=== PATIENT | male | born 1930 | race African-American/Black ===

== ENCOUNTER 2017-02-08 15:15 | Inpatient (IN) | payer MEDICARE, BC ==
[~2017-02-08] VITALS: Ht 165.1 cm; Wt 73.1 kg
[~2017-02-08 15:15] MED LIST: AMLO5TAB4 PO; BIMA2.5D EACHEYE; CITA20TA5 PO; GABA-586 PO; LISI1TAB5 PO; OXYC-314 PO; OXYC-323 PO; PRED20TA PO; SOLI10TA2 PO; SOLI5TAB2 PO; SULF1TAB24 PO; TAMS0.4C2 PO; TERA10CA3 PO; TIMO5DRO5 EACHEYE; TIZA4TAB PO
--- NOTE | 2017-02-08 15:42 | ED.ADGEN ---
Past Medical History Past Medical History: Arthritis, Diabetes-Type II, Glaucoma, Hypertension Additional Past Medical Histor: neuropathy, blind, Rt shoulder ligament torn, PAD Past Surgical History: Other Additional Past Surgical Histo: right ext iliac stent Alcohol Use: None Drug Use: None Adult General Chief Complaint Chief Complaint: MULTIPLE COMPLAINTS HPI HPI Patient is a 86 year old man, history of hypertension, type 2 diabetes mellitus , glaucoma, PAD, who presents to the emergency department with a complaint of left back, flank, abdominal pain which has been present intermittently for the past week or so, associated with pain with urination. No chest pain or shortness of breath. Patient states that about 2 weeks ago he seen by his doctor , was having some pain with urination, that time he started on antibiotic he stated he took a week this medication as prescribed by his primary care provider , states that the symptoms initially did clear up somewhat, but have returned and have been worse and more persistent. He describes it is a squeezing pain located in his left flank and back, associated with nausea, generalized malaise and decreased appetite. He states that he has not taken any other medications aside from the antibiotics and is really scheduled medications for this discomfort. Pain he states is a 9 out of 10 currently, it is currently feeling nauseous. He denies any injuries, any fevers or chills, any focal weakness, numbness or tingling but states that he feels weak all over. Denies any sick contacts or exposures, states that he is having pain with urination that has been persistent, is a burning, but denies any contacts, exposures, discharge drainage or injuries. No swelling of the extremities, recent travel or surgery, history of DVT or PE, he does not take any blood thinning medications. His primary care provider is Dr. Flores, and he does not know the name of the antibiotic which he was prescribed. Patient states that he had similar symptoms "a long time ago", but is unclear what may have caused the symptoms at that time or how was treated. He denies any history of renal calculi or colic. No vomiting, last bowel movement was this morning and was normal per patient report. Review of Systems Review of Systems Constitutional: Denies fever or chills. [] Eyes: Denies change in visual acuity. [] HENT: Denies nasal congestion or sore throat. [] Respiratory: Denies cough or shortness of breath. [] Cardiovascular: Denies chest pain or edema. [] GI: Sided flank abdominal pain, nausea, no vomiting, bloody stools or diarrhea. : Dysuria, no hematuria, no discharge or drainage. Musculoskeletal: Denies back pain or joint pain. [] Integument: Denies rash. [] Neurologic: Denies headache, focal weakness or sensory changes. [] Endocrine: Denies polyuria or polydipsia. [] Lymphatic: Denies swollen glands. [] Psychiatric: Denies depression or anxiety. [] Current Medications Current Medications Current Medications Medications (Trade) Dose Ordered Sig/Alysia Start Time Stop Time Status Last Admin Dose Admin Fentanyl Citrate (Fentanyl 2ml Vial) 25 mcg PRN Q15MIN PRN 02/08/17 15:45 02/09/17 15:44 02/08/17 16:12 25 MCG Ondansetron HCl (Zofran) 4 mg 1X ONCE 02/08/17 15:45 02/08/17 15:46 DC 02/08/17 16:10 4 MG Sodium Chloride 1,000 ml @ 100 mls/hr 1X ONCE 02/08/17 15:45 02/09/17 01:44 02/08/17 16:09 100 MLS/HR Allergies Allergies Allergies Coded Allergies Type Severity Reaction Last Updated Verified lisinopril Allergy Intermediate 10/30/14 No Physical Exam Physical Exam Constitutional: Well developed, well nourished, no acute distress, non-toxic appearance. [] HENT: Normocephalic, atraumatic, bilateral external ears normal, oropharynx moist, no oral exudates, nose normal. [] Eyes: PERRLA, EOMI, conjunctiva normal, no discharge. [] Neck: Normal range of motion, no tenderness, supple, no stridor. [] Cardiovascular:Heart rate regular rhythm, no murmur, S1, S2, no rubs or gallops. Lungs & Thorax: Bilateral breath sounds clear to auscultation, no wheezing, no rhonchi, rales. No chest wall crepitus, patient with mild tenderness in the left lateral lower back, although he is having more pain in the left flank and left abdominal region this appears to be connected. No external signs of trauma or lesions identified. [] Abdomen: Bowel sounds normal, soft, mildly distended, tenderness to palpation in the left upper and left lower quadrant, worse in the lower quadrant on the left, no epigastric tenderness, no rebound, rigidity, no guarding, no masses, no pulsatile masses. [] Skin: Warm, dry, no erythema, no rash. [] Back: No tenderness, mild left-sided CVA tenderness. Extremities: No tenderness, no cyanosis, no clubbing, ROM intact, no edema. [ Negative Homans sign.] Neurologic: Alert and oriented X 3, normal motor function, normal sensory function, no focal deficits noted. [] Psychologic: Affect normal, judgement normal, mood normal. [] Current Patient Data Vital Signs Vital Signs Date Time Temp Pulse Resp B/P (MAP) Pulse Ox O2 Delivery O2 Flow Rate FiO2 02/08/17 16:12 17 94 Room Air 02/08/17 15:35 97.5 65 140/93 (109) 97.5 Lab Values Laboratory Tests Test 02/08/17 15:51 White Blood Count 5.1 x10^3/uL (4.0-11.0) Red Blood Count 4.11 x10^6/uL (4.30-5.70) L Hemoglobin 13.2 g/dL (13.0-17.5) Hematocrit 39.4 % (39.0-53.0) Mean Corpuscular Volume 96 fL (79-100) Mean Corpuscular Hemoglobin 32 pg (25-35) Mean Corpuscular Hemoglobin Concent 33 g/dL (31-37) Red Cell Distribution Width 13.3 % (11.5-14.5) Platelet Count 203 x10^3/uL (140-400) Neutrophils (%) (Auto) 54 % (31-73) Lymphocytes (%) (Auto) 29 % (24-48) Monocytes (%) (Auto) 12 % (0-9) H Eosinophils (%) (Auto) 4 % (0-3) H Basophils (%) (Auto) 1 % (0-3) Neutrophils # (Auto) 2.8 x10^3uL (1.8-7.7) Lymphocytes # (Auto) 1.5 x10^3/uL (1.0-4.8) Monocytes # (Auto) 0.6 x10^3/uL (0.0-1.1) Eosinophils # (Auto) 0.2 x10^3/uL (0.0-0.7) Basophils # (Auto) 0.0 x10^3/uL (0.0-0.2) Sodium Level 128 mmol/L (136-145) L Potassium Level 3.7 mmol/L (3.5-5.1) Chloride Level 91 mmol/L (98-107) L Carbon Dioxide Level 28 mmol/L (21-32) Anion Gap 9 (6-14) Blood Urea Nitrogen 21 mg/dL (8-26) Creatinine 1.6 mg/dL (0.7-1.3) H Estimated GFR (Cockcroft-Gault) 49.8 BUN/Creatinine Ratio 13 (6-20) Glucose Level 106 mg/dL (70-99) H Calcium Level 9.7 mg/dL (8.5-10.1) Total Bilirubin 0.7 mg/dL (0.2-1.0) Aspartate Amino Transferase (AST) 26 U/L (15-37) Alanine Aminotransferase (ALT) 13 U/L (16-63) L Alkaline Phosphatase 79 U/L (46-116) Troponin I Quantitative 0.089 ng/mL (0.000-0.055) Total Protein 6.6 g/dL (6.4-8.2) Albumin 3.3 g/dL (3.4-5.0) L Albumin/Globulin Ratio 1.0 (1.0-1.7) Lipase 122 U/L (73-393) Laboratory Tests 02/08/17 15:51 Laboratory Tests 02/08/17 15:51 EKG EKG EC: Sinus rhythm, heart rate 63 bpm, 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 Abnormal ECG, does not meet STEMI criteria. As interpreted by me. Radiology/Procedures Radiology/Procedures [][facility] [address] [place] [address] IMAGING REPORT Signed PATIENT: KRISTIN PAINTER ACCOUNT: [id number] : 1930 LOCATION: ER AGE: 86 SEX: M EXAM STATUS: REG ER ORD. PHYSICIAN: NANNETTE SMITH DO REASON: left sided pain PROCEDURE: CHEST PA & LATERAL EXAM: CHEST 2 VIEWS History: Left-sided chest pain, diabetes, hypertension COMPARISON: 06/22/2014 TECHNIQUE: PA and lateral chest radiographs FINDINGS: The cardiomediastinal silhouette is within normal limits. The lungs are clear bilaterally. The costophrenic sulci are clear and well demarcated bilaterally. IMPRESSION: No radiographic evidence of an acute cardiopulmonary abnormality. DICTATED and SIGNED BY: GALDINO BHAT MD DATE: 02/08/171651 CC: NANNETTE SMITH DO; SHRUTHI FLORES Jr, MD ~ Course & Med Decision Making Course & Med Decision Making Pertinent Labs and Imaging studies reviewed. (See chart for details) Complaining of generalized weakness, wheelchair used to get the patient to bed, patient with shuffling steps. He denies any focal weakness. Complains of decreased intake over the past several days due to generalized malaise. Has been taking her Biaxin as directed although he cannot recall the name of the antibiotic as stated. Patient's creatinine noted to be elevated at 1.6, review of records reveal the patient is experienced renal sufficiency previously, with creatinines from the 1.3-2.0 range, improving after hospital admission. Patient also noted to have hyponatremia with a sodium 128, which appears he has experienced previously as well, with sodiums down to 123, then improving into the mid 130s, additionally, patient with a chloride of 91, and a troponin that is mildly elevated at 0.089. I believe this may be due to patient's underlying renal insufficiency, as he is not experiencing any cardiac type symptoms, ECG abnormal, but does not reveal evidence of acute changes from prior. Patient receiving IV fluids in the emergency department, gentle hydration in 100 mL's an hour. Findings as above discussed with Dr. Marquez of internal medicine, patient accepted to his service as a full admission to the medical telemetry floor, with laboratory studies and monitoring as stated, along with hydration. Urinalysis does not reveal bacteria, however as patient is still experiencing symptoms and has been taking oral antibiotics, will continue with IV antibiotics at this time, after discussion with patient and family at bedside. Patient is agreeable for admission to the hospital for gentle hydration and repeat monitoring laboratory studies. Patient resting comfortably at this time, awaiting transport to the floor in stable condition, sinus rhythm on the monitor. Bridge orders entered per discussion. Dragon Disclaimer Dragon Disclaimer This electronic medical record was generated, in whole or in part, using a voice recognition dictation system. Departure Impression: Primary Impression: Hyponatremia Additional Impressions: Dehydration Elevated troponin Disposition: 09 ADMITTED INPATIENT Admitting Physician: Celine Marquez Condition: IMPROVED Problem Qualifiers NANNETTE SMITH DO Feb 08, 2017 15:42
[2017-02-08] MEDS ORDERED: fentaNYL PF VIAL 100 MCG/2 ML VIAL IV PRN ×2 (15:45→18:15)
[2017-02-08] MEDS ORDERED: IV NORMAL SALINE 1000ML BAG 1,000 ML IV ONE (15:45)
[2017-02-08] MEDS ORDERED: ONDANSETRON PF 4 MG/2 ML VIAL. IV ONE (15:45)
--- NOTE | 2017-02-08 15:51 | EKG ---
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: : 1930 Requested By: NANNETTE SMITH Order Number: [id number] Reading MD: Bunny Henriquez Measurements Intervals [place] Rate: 63 P: -42 RI: 196 QRS: -73 QRSD: 136 T: -52 QT: 480 QTc: 495 Interpretive Statements SINUS RHYTHM VENTRICULAR PREMATURE COMPLEX(ES) ABNORMAL LEFT AXIS DEVIATION LEFT ANTERIOR FASCICULAR BLOCK NON SPECIFIC INTRAVENTRICULAR BLOCK QRS(T) CONTOUR ABNORMALITY CANNOT RULE OUT ANTEROSEPTAL MYOCARDIAL DAMAGE CANNOT RULE OUT INFERIOR MYOCARDIAL DAMAGE RI6.01 Unconfirmed report Compared to ECG 06/21/2014 13:44:10 ST (T wave) deviation no longer present Electronically Signed On 02-10-2017 11:17:12 CDT by Bunny Henriquez
[2017-02-08 16:04] LABS: BASO % 1 % (0-3); EOS % 4 % (0-3); HEMATOCRIT 39.4 % (39.0-53.0); HEMOGLOBIN 13.2 g/dL (13.0-17.5); LYMPH # 1.5 x10^3/uL (1.0-4.8); LYMPH % 29 % (24-48); MEAN CORPUSCULAR HEMOGLOBIN 32 pg (25-35); MEAN CORPUSCULAR HGB CONC 33 g/dL (31-37); MEAN CORPUSCULAR VOLUME 96 fL (79-100); MONO % 12 % (0-9); NEUT % 54 % (31-73); PLATELET COUNT 203 x10^3/uL (140-400); RED BLOOD COUNT 4.11 x10^6/uL (4.30-5.70); RED CELL DISTRIBUTION WIDTH 13.3 % (11.5-14.5); WHITE BLOOD COUNT 5.1 x10^3/uL (4.0-11.0)
[2017-02-08 16:42] LABS: CALCIUM 9.7 mg/dL (8.5-10.1); CREATININE 1.6 mg/dL (0.7-1.3); GFR 49.8; POTASSIUM 3.7 mmol/L (3.5-5.1)
[2017-02-08 16:48] LABS: ALBUMIN 3.3 g/dL (3.4-5.0); TOTAL BILIRUBIN 0.7 mg/dL (0.2-1.0); TOTAL PROTEIN 6.6 g/dL (6.4-8.2)
--- NOTE | 2017-02-08 16:55 | RAD ---
EXAM: CHEST 2 VIEWS History: Left-sided chest pain, diabetes, hypertension COMPARISON: 06/22/2014 TECHNIQUE: PA and lateral chest radiographs FINDINGS: The cardiomediastinal silhouette is within normal limits. The lungs are clear bilaterally. The costophrenic sulci are clear and well demarcated bilaterally. IMPRESSION: No radiographic evidence of an acute cardiopulmonary abnormality.
[2017-02-08] MEDS ORDERED: CONTRAST GIVEN MC PRN (17:00)
[2017-02-08] MEDS ORDERED: IOHEXOL 300 MG/ML 75 ML VIAL IV ONE (17:00)
[2017-02-08 17:10] LABS: BILIRUBIN,URINE NEGATIVE (NEG); GLUCOSE,URINE NEGATIVE (NEG); NITRITE,URINE NEGATIVE (NEG); PH,URINE 5.5; PROTEIN,URINE 30 mg/dL (NEG-TRACE); UROBILINOGEN,URINE 0.2 mg/dL (0.2 mg/dL)
[2017-02-08 17:24] LABS: BACTERIA,URINE 0 /HPF (0-FEW); SQUAMOUS EPITHELIAL CELL,UR OCC /LPF; WBC,URINE OCC /HPF (0-4)
--- NOTE | 2017-02-08 17:39 | RAD ---
CT ABD PELV W/ IV CONTRST ONLY dated 02/08/2017 3:32 PM Indication: Left-sided abdominal pain, flank pain, pain on urination. Comparison: 06/21/2014 Technique: Contiguous axial imaging of the abdomen and pelvis performed after the administration of 75 cc Omnipaque 300. One or more of the following individualized dose reduction techniques were utilized for this examination: 1. Automated exposure control 2. Adjustment of the mA and/or kV according to patient size 3. Use of iterative reconstruction technique Findings: Limited images of lung bases show linear band of increased density in the lingula, likely scar or atelectasis. There is also minimal scarring at the right lung base. Heart size within normal limits. Coronary artery calcifications. Liver, spleen, pancreas, adrenal glands unremarkable. Calcific stones in the gallbladder lumen. Kidneys are symmetric in size and enhancement. There is mild atrophy. No hydronephrosis. Unopacified GI tract normal in caliber and contour. No focal bowel wall thickening. No inflammatory stranding in the mesentery. The appendix is normal in caliber. No ascites or lymphadenopathy. There are a few scattered diverticula. Images of the pelvis shows nondistended urinary bladder. Prostate gland upper limits of normal in size. No free fluid or pelvic lymphadenopathy. There is a stent in the right external iliac artery. Possible stent in the left common iliac artery. 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 Bone windows show no acute findings. Moderate lower lumbar spondylosis. IMPRESSION: 1. No acute amount of abdomen or pelvis. Normal appendix. 2. Diverticulosis with no evidence of acute diverticulitis. 3. 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 4. Cholelithiasis. Electronically signed by: Ashish Tavares MD (02/08/2017 5:36 PM)
[2017-02-08] MEDS: IV NORMAL SALINE 1000ML BAG 1,000 ML IV SCH (18:01)
[2017-02-08] MEDS ORDERED: DEXTROSE 50% 25 GM / 50ML DISP.SYRIN. IV PRN (18:15)
[2017-02-08] MEDS ORDERED: ONDANSETRON PF 4 MG/2 ML VIAL. IV PRN (18:15)
[2017-02-08] MEDS ORDERED: ACETAMINOPHEN 325 MG TABLET. PO PRN (18:15)
[2017-02-08 19:50] VITALS: BP 159/96
[2017-02-08 23:31] VITALS: BP 169/106
[2017-02-09] VITALS (7 sets, daily range): BP systolic 124–182; BP diastolic 72–98
--- NOTE | 2017-02-09 00:41 | HP ---
ADMIT DATE: 02/08/2017 CHIEF COMPLAINT: Abdominal pain. HISTORY OF PRESENT ILLNESS: The patient is a pleasant 86-year-old male who presents to the ER with abdominal pain. He has been recently treated as an outpatient for UTI with p.o. antibiotics. While in the ER, he was noted to be somewhat dehydrated. His creatinine is a little high at 1.6. He also has UTI. His troponin is slightly high, though we think that it is from his chronic renal insufficiency. I have discussed the case with the ER physician. We are going to admit the patient and consult Nephrology and put him on some empiric IV antibiotics and fluids. PAST MEDICAL HISTORY: Arthritis, diabetes, UTI, glaucoma, hypertension, neuropathy, right shoulder surgery, peripheral vascular disease and right external iliac stent. ALLERGIES: LISINOPRIL. FAMILY HISTORY: Diabetes. SOCIAL HISTORY: Does not drink, smoke or take drugs. MEDICATIONS: Reviewed, please refer to the MRAD. REVIEW OF SYSTEMS: GENERAL: No history of weight change, weakness or fevers. SKIN: No bruising, hair changes or rashes. EYES: No blurred, double or loss of vision. NOSE AND THROAT: No history of nosebleeds, hoarseness or sore throat. HEART: No history of palpitations, chest pain or shortness of breath on exertion. LUNGS: Denies cough, hemoptysis, wheezing or shortness of breath. GASTROINTESTINAL: He complains of mild abdominal pain. GENITOURINARY: No history of frequency, urgency, hesitancy or nocturia. NEUROLOGIC: Denies history of numbness, tingling, tremor or weakness. PSYCHIATRIC: No history of panic, anxiety or depression. ENDOCRINE: No history of heat or cold intolerance, polyuria or polydipsia. EXTREMITIES: Denies muscle weakness, joint pain, pain on walking or stiffness. PHYSICAL EXAMINATION: VITAL SIGNS: Temperature afebrile, pulse 62, respirations 18, blood pressure 148/84. GENERAL: He is alert, cooperative. HEART: Normal S1, S2. LUNGS: Clear. ABDOMEN: Soft. Decreased bowel sounds, slightly tender. EXTREMITIES: Trace edema. SKIN: No rashes. ENDOCRINE: No thyromegaly. LYMPHATICS: No cervical nodes. HEMATOPOIETIC: No bruising. LABORATORY DATA: White count 5, hemoglobin 13, platelets 203. Electrolytes: Sodium ____, potassium 3.7, chloride 91, bicarbonate ____, BUN 21, creatinine 1.6, glucose 106. Troponin 0.089. ASSESSMENT AND PLAN: Dehydration with acute on chronic urinary tract infection. The patient has been admitted. We will start IV antibiotics, IV fluids. Consult Nephrology. Continue home meds, PT, OT, alf evaluation. JOSE ANGEL SAINI DO DR: BRIGID/chung JOB#: [id number] / [id number]
[2017-02-09] MEDS: IV NORMAL SALINE 1000ML BAG 1,000 ML IV SCH ×2 (03:57→13:13)
[2017-02-09] MEDS ORDERED: amLODIPine BESYLATE 5 MG TABLET PO ONE (04:30)
[2017-02-09 06:46] LABS: BASO % 0 % (0-3); EOS % 5 % (0-3); HEMATOCRIT 35.1 % (39.0-53.0); LYMPH # 1.3 x10^3/uL (1.0-4.8); LYMPH % 30 % (24-48); MEAN CORPUSCULAR HEMOGLOBIN 32 pg (25-35); MEAN CORPUSCULAR HGB CONC 34 g/dL (31-37); MEAN CORPUSCULAR VOLUME 95 fL (79-100); MONO % 14 % (0-9); NEUT % 51 % (31-73); PLATELET COUNT 170 x10^3/uL (140-400); WHITE BLOOD COUNT 4.2 x10^3/uL (4.0-11.0)
[2017-02-09 06:54] LABS: CALCIUM 8.6 mg/dL (8.5-10.1); CREATININE 1.4 mg/dL (0.7-1.3); GFR 58.1; POTASSIUM 3.9 mmol/L (3.5-5.1)
--- NOTE | 2017-02-09 07:21 | ACF ---
Admission Forms Criteria DEHYDRATION Clinical Indications for Admission to Inpatient Care (Place 'X' for any and all applicable criteria): Admission is indicated for ANY ONE of the following (1)(2)(3)(4)(5): [X]I. Inpatient admission required rather than observation care (see Dehydration: Observation Care guideline as appropriate) because of ANY ONE of the following: [ ]a) Vomiting that is severe or persistent [X]b) Severe electrolyte abnormalities requiring inpatient care [ ]c) Hemodynamic instability [ ]d) IV fluid to replace significant ongoing losses (greater than 3 L/m2 per day (10) (11) [ ]e) Parenteral nutrition regimen that must be implemented on inpatient basis [ ]f) Other condition,treatment or monitoring requiring inpatient admission [ ]II. Serious cause for dehydration requiring acute hospitalization (eg, bowel obstruction, increased intracranial pressure, infectious cause) Extended stay beyond goal length of stay may be needed for(1)(3 )(4)(17): [ ]a) Chronic severe dehydration [ ]b) Persistent vital sign changes, severe electrolyte imbalance, or diagnosed cause of dehydration that requires continued hospitalization (eg, bowel obstruction, increased intracranial pressure) [ ]c) Older patients (65 years or older) [ ]d) Severe comorbid illness (eg, renal failure, heart failure, poorly controlled diabetes) The original [employer] content created by [employer] has been revised. The portions of the content which have been revised are identified through the use of italic text or in bold, and [email or web address] has neither reviewed nor approved the modified material. All other unmodified content is copyright [employer]. Please see references footnoted in the original [employer] edition 2016 Admission Criteria Met?: Yes GEGE CHIU Feb 09, 2017 07:21
[2017-02-09] MEDS ORDERED: INSULIN ASPART 300 UNITS/3 ML INSULN.PEN SQ SCH (08:00)
[2017-02-09] MEDS ORDERED: cloNIDine HCL 0.2 MG TABLET PO PRN (08:45)
--- NOTE | 2017-02-09 09:13 | EKG ---
[facility] [address] [place] [address] Test Date: 2017-02-09 Test Time: 07:52:08 Pat Name: KRISTIN PAINTER Department: Room: 671 1 Gender: M Record Librarian: BRYN : 1930 Requested By: NANNETTE SMITH Order Number: [id number] Reading MD: Bunny Henriquez Measurements Intervals [place] Rate: 70 P: 54 [place]: 198 QRS: -80 QRSD: 142 T: -24 QT: 458 QTc: 498 Interpretive Statements SINUS RHYTHM ABNORMAL LEFT AXIS DEVIATION S1,S2,S3 PATTERN LEFT ANTERIOR FASCICULAR BLOCK NON SPECIFIC INTRAVENTRICULAR BLOCK QRS(T) CONTOUR ABNORMALITY CONSIDER INFERIOR MYOCARDIAL DAMAGE ABNORMAL ECG RI6.01 Unconfirmed report Compared to ECG 06/21/2014 13:44:10 ST (T wave) deviation no longer present Electronically Signed On 02-10-2017 11:22:01 CDT by Bunny Henriquez
--- NOTE | 2017-02-09 09:23 | PDOC ---
PROGRESS NOTES Chief Complaint Chief Complaint Dehydration Elevated Trop UTI Abd pain Old H/O: Arthritis, diabetes, UTI, glaucoma, hypertension, neuropathy, right shoulder surgery, peripheral vascular disease and right external iliac stent. History of Present Illness History of Present Illness Pt seen and examined VSS but BP up DW RNs Ordered Clonidine and increased Norvasc Vitals Vitals Vital Signs Date Time Temp Pulse Resp B/P (MAP) Pulse Ox O2 Delivery O2 Flow Rate FiO2 02/09/17 07:00 98.0 63 18 182/98 (126) 95 Room Air 98.0 Physical Exam General: Alert, Oriented X3 Heart: Regular rate, Normal S1, Normal S2 Lungs: Clear Abdomen: Normal bowel sounds, Other (tender LUQ) Labs LABS Laboratory Tests Test 02/08/17 15:51 02/08/17 16:50 02/08/17 21:55 02/09/17 04:25 White Blood Count 5.1 x10^3/uL (4.0-11.0) 4.2 x10^3/uL (4.0-11.0) Red Blood Count 4.11 x10^6/uL (4.30-5.70) 3.70 x10^6/uL (4.30-5.70) Hemoglobin 13.2 g/dL (13.0-17.5) 12.0 g/dL (13.0-17.5) Hematocrit 39.4 % (39.0-53.0) 35.1 % (39.0-53.0) Mean Corpuscular Volume 96 fL (79-100) 95 fL (79-100) Mean Corpuscular Hemoglobin 32 pg (25-35) 32 pg (25-35) Mean Corpuscular Hemoglobin Concent 33 g/dL (31-37) 34 g/dL (31-37) Red Cell Distribution Width 13.3 % (11.5-14.5) 13.0 % (11.5-14.5) Platelet Count 203 x10^3/uL (140-400) 170 x10^3/uL (140-400) Neutrophils (%) (Auto) 54 % (31-73) 51 % (31-73) Lymphocytes (%) (Auto) 29 % (24-48) 30 % (24-48) Monocytes (%) (Auto) 12 % (0-9) 14 % (0-9) Eosinophils (%) (Auto) 4 % (0-3) 5 % (0-3) Basophils (%) (Auto) 1 % (0-3) 0 % (0-3) Neutrophils # (Auto) 2.8 x10^3uL (1.8-7.7) 2.1 x10^3uL (1.8-7.7) Lymphocytes # (Auto) 1.5 x10^3/uL (1.0-4.8) 1.3 x10^3/uL (1.0-4.8) Monocytes # (Auto) 0.6 x10^3/uL (0.0-1.1) 0.6 x10^3/uL (0.0-1.1) Eosinophils # (Auto) 0.2 x10^3/uL (0.0-0.7) 0.2 x10^3/uL (0.0-0.7) Basophils # (Auto) 0.0 x10^3/uL (0.0-0.2) 0.0 x10^3/uL (0.0-0.2) Sodium Level 128 mmol/L (136-145) 130 mmol/L (136-145) Potassium Level 3.7 mmol/L (3.5-5.1) 3.9 mmol/L (3.5-5.1) Chloride Level 91 mmol/L (98-107) 95 mmol/L (98-107) Carbon Dioxide Level 28 mmol/L (21-32) 27 mmol/L (21-32) Anion Gap 9 (6-14) 8 (6-14) Blood Urea Nitrogen 21 mg/dL (8-26) 18 mg/dL (8-26) Creatinine 1.6 mg/dL (0.7-1.3) 1.4 mg/dL (0.7-1.3) Estimated GFR (Cockcroft-Gault) 49.8 58.1 BUN/Creatinine Ratio 13 (6-20) Glucose Level 106 mg/dL (70-99) 99 mg/dL (70-99) Calcium Level 9.7 mg/dL (8.5-10.1) 8.6 mg/dL (8.5-10.1) Total Bilirubin 0.7 mg/dL (0.2-1.0) Aspartate Amino Transf (AST/SGOT) 26 U/L (15-37) Alanine Aminotransferase (ALT/SGPT) 13 U/L (16-63) Alkaline Phosphatase 79 U/L (46-116) Troponin I Quantitative 0.089 ng/mL (0.000-0.055) 0.085 ng/mL (0.000-0.055) 0.085 ng/mL (0.000-0.055) Total Protein 6.6 g/dL (6.4-8.2) Albumin 3.3 g/dL (3.4-5.0) Albumin/Globulin Ratio 1.0 (1.0-1.7) Lipase 122 U/L (73-393) Urine Collection Type U cath Urine Color Yellow Urine Clarity Clear Urine pH 5.5 Urine Specific [place] 1.015 Urine Protein 30 mg/dL (NEG-TRACE) Urine Glucose (UA) Negative mg/dL (NEG) Urine Ketones (Stick) Negative mg/dL (NEG) Urine Blood Small (NEG) Urine Nitrite Negative (NEG) Urine Bilirubin Negative (NEG) Urine Urobilinogen Dipstick 0.2 mg/dL (0.2 mg/dL) Urine Leukocyte Esterase Trace (NEG) Urine RBC 3-5 /HPF (0-2) Urine WBC Occ /HPF (0-4) Urine Squamous Epithelial Cells Occ /LPF Urine Amorphous Sediment Present /HPF Urine Bacteria 0 /HPF (0-FEW) Review of Systems Review of Systems co pain co HTN Assessment and Plan Assessmemt and Plan Problems Medical Problems: (1) Elevated troponin Status: Acute (2) Hyponatremia Status: Acute Dehydration Elevated Trop UTI Abd pain Old H/O: Arthritis, diabetes, UTI, glaucoma, hypertension, neuropathy, right shoulder surgery, peripheral vascular disease and right external iliac stent. Paln IV fluids IV antibx Added more BP meds Labs Consult GI Problems: Comment Review of Relevant I have reviewed the following items marika (where applicable) has been applied. Labs Laboratory Tests Test 02/08/17 15:51 02/08/17 16:50 02/08/17 21:55 02/09/17 04:25 White Blood Count 5.1 x10^3/uL (4.0-11.0) 4.2 x10^3/uL (4.0-11.0) Red Blood Count 4.11 x10^6/uL (4.30-5.70) 3.70 x10^6/uL (4.30-5.70) Hemoglobin 13.2 g/dL (13.0-17.5) 12.0 g/dL (13.0-17.5) Hematocrit 39.4 % (39.0-53.0) 35.1 % (39.0-53.0) Mean Corpuscular Volume 96 fL (79-100) 95 fL (79-100) Mean Corpuscular Hemoglobin 32 pg (25-35) 32 pg (25-35) Mean Corpuscular Hemoglobin Concent 33 g/dL (31-37) 34 g/dL (31-37) Red Cell Distribution Width 13.3 % (11.5-14.5) 13.0 % (11.5-14.5) Platelet Count 203 x10^3/uL (140-400) 170 x10^3/uL (140-400) Neutrophils (%) (Auto) 54 % (31-73) 51 % (31-73) Lymphocytes (%) (Auto) 29 % (24-48) 30 % (24-48) Monocytes (%) (Auto) 12 % (0-9) 14 % (0-9) Eosinophils (%) (Auto) 4 % (0-3) 5 % (0-3) Basophils (%) (Auto) 1 % (0-3) 0 % (0-3) Neutrophils # (Auto) 2.8 x10^3uL (1.8-7.7) 2.1 x10^3uL (1.8-7.7) Lymphocytes # (Auto) 1.5 x10^3/uL (1.0-4.8) 1.3 x10^3/uL (1.0-4.8) Monocytes # (Auto) 0.6 x10^3/uL (0.0-1.1) 0.6 x10^3/uL (0.0-1.1) Eosinophils # (Auto) 0.2 x10^3/uL (0.0-0.7) 0.2 x10^3/uL (0.0-0.7) Basophils # (Auto) 0.0 x10^3/uL (0.0-0.2) 0.0 x10^3/uL (0.0-0.2) Sodium Level 128 mmol/L (136-145) 130 mmol/L (136-145) Potassium Level 3.7 mmol/L (3.5-5.1) 3.9 mmol/L (3.5-5.1) Chloride Level 91 mmol/L (98-107) 95 mmol/L (98-107) Carbon Dioxide Level 28 mmol/L (21-32) 27 mmol/L (21-32) Anion Gap 9 (6-14) 8 (6-14) Blood Urea Nitrogen 21 mg/dL (8-26) 18 mg/dL (8-26) Creatinine 1.6 mg/dL (0.7-1.3) 1.4 mg/dL (0.7-1.3) Estimated GFR (Cockcroft-Gault) 49.8 58.1 BUN/Creatinine Ratio 13 (6-20) Glucose Level 106 mg/dL (70-99) 99 mg/dL (70-99) Calcium Level 9.7 mg/dL (8.5-10.1) 8.6 mg/dL (8.5-10.1) Total Bilirubin 0.7 mg/dL (0.2-1.0) Aspartate Amino Transf (AST/SGOT) 26 U/L (15-37) Alanine Aminotransferase (ALT/SGPT) 13 U/L (16-63) Alkaline Phosphatase 79 U/L (46-116) Troponin I Quantitative 0.089 ng/mL (0.000-0.055) 0.085 ng/mL (0.000-0.055) 0.085 ng/mL (0.000-0.055) Total Protein 6.6 g/dL (6.4-8.2) Albumin 3.3 g/dL (3.4-5.0) Albumin/Globulin Ratio 1.0 (1.0-1.7) Lipase 122 U/L (73-393) Urine Collection Type U cath Urine Color Yellow Urine Clarity Clear Urine pH 5.5 Urine Specific [place] 1.015 Urine Protein 30 mg/dL (NEG-TRACE) Urine Glucose (UA) Negative mg/dL (NEG) Urine Ketones (Stick) Negative mg/dL (NEG) Urine Blood Small (NEG) Urine Nitrite Negative (NEG) Urine Bilirubin Negative (NEG) Urine Urobilinogen Dipstick 0.2 mg/dL (0.2 mg/dL) Urine Leukocyte Esterase Trace (NEG) Urine RBC 3-5 /HPF (0-2) Urine WBC Occ /HPF (0-4) Urine Squamous Epithelial Cells Occ /LPF Urine Amorphous Sediment Present /HPF Urine Bacteria 0 /HPF (0-FEW) Laboratory Tests Test 02/08/17 15:51 02/08/17 16:50 02/08/17 21:55 02/09/17 04:25 White Blood Count 5.1 x10^3/uL (4.0-11.0) 4.2 x10^3/uL (4.0-11.0) Red Blood Count 4.11 x10^6/uL (4.30-5.70) 3.70 x10^6/uL (4.30-5.70) Hemoglobin 13.2 g/dL (13.0-17.5) 12.0 g/dL (13.0-17.5) Hematocrit 39.4 % (39.0-53.0) 35.1 % (39.0-53.0) Mean Corpuscular Volume 96 fL (79-100) 95 fL (79-100) Mean Corpuscular Hemoglobin 32 pg (25-35) 32 pg (25-35) Mean Corpuscular Hemoglobin Concent 33 g/dL (31-37) 34 g/dL (31-37) Red Cell Distribution Width 13.3 % (11.5-14.5) 13.0 % (11.5-14.5) Platelet Count 203 x10^3/uL (140-400) 170 x10^3/uL (140-400) Neutrophils (%) (Auto) 54 % (31-73) 51 % (31-73) Lymphocytes (%) (Auto) 29 % (24-48) 30 % (24-48) Monocytes (%) (Auto) 12 % (0-9) 14 % (0-9) Eosinophils (%) (Auto) 4 % (0-3) 5 % (0-3) Basophils (%) (Auto) 1 % (0-3) 0 % (0-3) Neutrophils # (Auto) 2.8 x10^3uL (1.8-7.7) 2.1 x10^3uL (1.8-7.7) Lymphocytes # (Auto) 1.5 x10^3/uL (1.0-4.8) 1.3 x10^3/uL (1.0-4.8) Monocytes # (Auto) 0.6 x10^3/uL (0.0-1.1) 0.6 x10^3/uL (0.0-1.1) Eosinophils # (Auto) 0.2 x10^3/uL (0.0-0.7) 0.2 x10^3/uL (0.0-0.7) Basophils # (Auto) 0.0 x10^3/uL (0.0-0.2) 0.0 x10^3/uL (0.0-0.2) Sodium Level 128 mmol/L (136-145) 130 mmol/L (136-145) Potassium Level 3.7 mmol/L (3.5-5.1) 3.9 mmol/L (3.5-5.1) Chloride Level 91 mmol/L (98-107) 95 mmol/L (98-107) Carbon Dioxide Level 28 mmol/L (21-32) 27 mmol/L (21-32) Anion Gap 9 (6-14) 8 (6-14) Blood Urea Nitrogen 21 mg/dL (8-26) 18 mg/dL (8-26) Creatinine 1.6 mg/dL (0.7-1.3) 1.4 mg/dL (0.7-1.3) Estimated GFR (Cockcroft-Gault) 49.8 58.1 BUN/Creatinine Ratio 13 (6-20) Glucose Level 106 mg/dL (70-99) 99 mg/dL (70-99) Calcium Level 9.7 mg/dL (8.5-10.1) 8.6 mg/dL (8.5-10.1) Total Bilirubin 0.7 mg/dL (0.2-1.0) Aspartate Amino Transf (AST/SGOT) 26 U/L (15-37) Alanine Aminotransferase (ALT/SGPT) 13 U/L (16-63) Alkaline Phosphatase 79 U/L (46-116) Troponin I Quantitative 0.089 ng/mL (0.000-0.055) 0.085 ng/mL (0.000-0.055) 0.085 ng/mL (0.000-0.055) Total Protein 6.6 g/dL (6.4-8.2) Albumin 3.3 g/dL (3.4-5.0) Albumin/Globulin Ratio 1.0 (1.0-1.7) Lipase 122 U/L (73-393) Urine Collection Type U cath Urine Color Yellow Urine Clarity Clear Urine pH 5.5 Urine Specific [place] 1.015 Urine Protein 30 mg/dL (NEG-TRACE) Urine Glucose (UA) Negative mg/dL (NEG) Urine Ketones (Stick) Negative mg/dL (NEG) Urine Blood Small (NEG) Urine Nitrite Negative (NEG) Urine Bilirubin Negative (NEG) Urine Urobilinogen Dipstick 0.2 mg/dL (0.2 mg/dL) Urine Leukocyte Esterase Trace (NEG) Urine RBC 3-5 /HPF (0-2) Urine WBC Occ /HPF (0-4) Urine Squamous Epithelial Cells Occ /LPF Urine Amorphous Sediment Present /HPF Urine Bacteria 0 /HPF (0-FEW) Medications Current Medications Fentanyl Citrate (Fentanyl 2ml Vial) 25 mcg PRN Q15MIN PRN IV PAIN GREATER THAN 3/10 Last administered on 02/08/17 16:12; Start 02/08/17 at 15:45; Stop at 15:44 Ondansetron HCl (Zofran) 4 mg 1X ONCE IV Last administered on 02/08/17 16:10 ; Start 02/08/17 at 15:45; Stop 02/08/17 at 15:46; Status DC Sodium Chloride 1,000 ml @ 100 mls/hr 1X ONCE IV Last administered on 16:09; Start 02/08/17 at 15:45; Stop 02/09/17 at 01:44; Status DC Iohexol (Omnipaque 300 Mg/ml) 60 ml 1X ONCE IV Last administered on 02/08/17 17:02; Start 02/08/17 at 17:00; Stop 02/08/17 at 17:01; Status DC Info (Do NOT chart on this entry -- for MONITORING) 1 each PRN DAILY PRN MC SEE COMMENTS; Start 02/08/17 at 17:00; Stop 02/10/17 at 16:59 Ceftriaxone Sodium 50 ml @ 100 mls/hr 1X ONCE IV Last administered on 18:14; Start 02/08/17 at 17:45; Stop 02/08/17 at 18:14; Status DC Ondansetron HCl (Zofran) 4 mg PRN Q8HRS PRN IV NAUSEA/VOMITING; Start 02/08/17 at 18:15; Stop 02/09/17 at 18:14 Fentanyl Citrate (Fentanyl 2ml Vial) 25 mcg PRN Q1HR PRN IV PAIN; Start at 18:15; Stop 02/09/17 at 18:14 Sodium Chloride 1,000 ml @ 100 mls/hr Q10H IV Last administered on 02/09/17 03:57; Start 02/08/17 at 18:01; Stop 02/09/17 at 18:00 Acetaminophen (Tylenol) 650 mg PRN Q4HRS PRN PO FEVER; Start 02/08/17 at 18:15 ; Stop 02/09/17 at 18:14 Insulin Aspart (NovoLOG) 0-5 UNITS TIDWMEALS SQ ; Start 02/09/17 at 08:00; Stop 02/09/17 at 08:45; Status DC Dextrose (Dextrose 50%-Water Syringe) 12.5 gm PRN Q15MIN PRN IV SEE COMMENTS; Start 02/08/17 at 18:15; Stop 02/09/17 at 08:45; Status DC Ceftriaxone Sodium 1 gm/ Sodium Chloride 50 ml @ 100 mls/hr Q24H IV ; Start at 19:00 Amlodipine Besylate (Norvasc) 5 mg 1X ONCE PO Last administered on 02/09/17 04:13; Start 02/09/17 at 04:30; Stop 02/09/17 at 04:31; Status DC Amlodipine Besylate (Norvasc) 5 mg DAILY PO ; Start 02/10/17 at 09:00; Stop at 09:00; Status DC Amlodipine Besylate (Norvasc) 10 mg DAILY PO ; Start 02/10/17 at 09:00 Clonidine HCl (Catapres) 0.2 mg PRN Q4HRS PRN PO HYPERTENSION, SEE COMMENTS; Start 02/09/17 at 08:45 Active Scripts Active Bactrim Ds Tablet (Sulfamethoxazole/Trimethoprim) 1 Each Tablet 1 Each PO BID 14 Days Prednisone 20 Mg Tablet 1 Tab PO DAILY Norvasc (Amlodipine Besylate) 5 Mg Tablet 5 Mg PO DAILY Reported Gabapentin 300 Mg Capsule 300 Mg PO TID Timolol Maleate 10 Ml Drops 1 Drop EACHEYE BID Lumigan (Bimatoprost) 2.5 Ml Drops 1 Drop EACHEYE QHS Citalopram Hbr (Citalopram Hydrobromide) 20 Mg Tablet 20 Mg PO DAILY Vesicare (Solifenacin Succinate) 10 Mg Tablet 10 Mg PO DAILY Vitals/I & O Vital Sign - Last 24 Hours 02/08/17 02/08/17 02/08/17 02/08/17 15:35 15:58 16:12 16:36 Temp 97.5 97.5 Pulse 65 62 58 Resp 18 17 B/P (MAP) 140/93 (109) 119/78 (92) 139/76 (97) Pulse Ox 95 95 94 O2 Delivery Room Air Room Air Room Air Room Air 02/08/17 02/08/17 02/08/17 02/08/17 17:11 17:41 18:11 18:41 Pulse 56 54 56 54 B/P (MAP) 141/74 (96) 148/84 (105) 168/77 (107) 171/82 (111) Pulse Ox 94 94 92 94 O2 Delivery Room Air Room Air Room Air Room Air 02/08/17 02/08/17 02/08/17 02/08/17 19:11 19:50 21:01 23:31 Temp 97.8 97.8 Pulse 58 62 54 Resp 18 20 B/P (MAP) 161/88 (112) 159/96 (117) 169/106 (127) Pulse Ox 92 97 96 O2 Delivery Room Air Room Air Room Air Room Air 02/09/17 02/09/17 02/09/17 02/09/17 00:24 03:00 04:13 07:00 Temp 97.8 98.0 97.8 98.0 Pulse 55 59 59 63 Resp 18 B/P (MAP) 157/92 (113) 172/98 (122) 178/98 182/98 (126) Pulse Ox 96 95 O2 Delivery Room Air Room Air Intake and Output 02/08/17 02/08/17 02/09/17 15:00 23:00 07:00 Intake Total 50 ml 240 ml Balance 50 ml 240 ml JOSE ANGEL SAINI III DO Feb 09, 2017 09:23
--- NOTE | 2017-02-09 10:18 | PDOC2 ---
GI CONSULT Reason For Consult: LUQ pain HPI: HPI: 86 y/o male, recently treated w/ atbx as outpt for dysuria which has improved. Evaluated in ER for flank/abd pain, admitted w/ dehydration. On IV atbx, nephrology to see. GI asked to see re: LUQ pain. Tells me 1 month of LUQ/ flank discomfort w/ some radiation to RUQ. Appetite varies, sometimes he eats well, sometimes not. Pain unrelated to eating. No n/v, no reflux/heartburn/ dyspepsia, no diarrhea, no hematochezia or melena, no bloating. Has lost a few pounds. Occasional constipation, has tried Miralax a few times, last BM 2 days ago. No NSAID use. Last colonoscopy in 2003 w/ one adenomatous polyp, cecal "polyp" (path benign), hepatic flexure ulcer (path benign), and hemorrhoids. EGD in 2005 (note for LUQ pain) showed small hiatal hernia, erosive gastritis, and normal duodenum. Amanda-test + for H. pylori, unclear if treated. PMH: PMH: diverticulosis, hemorrhoids, adenomatous colon polyp, H. pylori, cholelithiasis , glaucoma, right rotator cuff tear, HTN, PVD, arthritis, ?iliac stent (pt and unsure) FH: Family History: No pertinent hx Social History: Smoke: No ALCOHOL: none ROS: GEN: Denies fevers, chills, sweats HEENT: Denies blurred vision, sore throat CV: Denies chest pain RESP: Denies shortness of air, cough GI: Per HPI : +dysuria (now resolved) ENDO: +weight loss NEURO: Denies confusion, dizziness MSK: Denies weakness, joint pain/swelling SKIN: Denies jaundice, pruritus Vitals: Vitals: Vital Signs Date Time Temp Pulse Resp B/P (MAP) Pulse Ox O2 Delivery O2 Flow Rate FiO2 02/09/17 08:00 Room Air 02/09/17 07:00 98.0 63 18 182/98 (126) 95 98.0 Labs: Labs: Laboratory Tests Test 02/08/17 15:51 02/08/17 16:50 02/08/17 21:55 02/09/17 04:25 White Blood Count 5.1 x10^3/uL (4.0-11.0) 4.2 x10^3/uL (4.0-11.0) Red Blood Count 4.11 x10^6/uL (4.30-5.70) 3.70 x10^6/uL (4.30-5.70) Hemoglobin 13.2 g/dL (13.0-17.5) 12.0 g/dL (13.0-17.5) Hematocrit 39.4 % (39.0-53.0) 35.1 % (39.0-53.0) Mean Corpuscular Volume 96 fL (79-100) 95 fL (79-100) Mean Corpuscular Hemoglobin 32 pg (25-35) 32 pg (25-35) Mean Corpuscular Hemoglobin Concent 33 g/dL (31-37) 34 g/dL (31-37) Red Cell Distribution Width 13.3 % (11.5-14.5) 13.0 % (11.5-14.5) Platelet Count 203 x10^3/uL (140-400) 170 x10^3/uL (140-400) Neutrophils (%) (Auto) 54 % (31-73) 51 % (31-73) Lymphocytes (%) (Auto) 29 % (24-48) 30 % (24-48) Monocytes (%) (Auto) 12 % (0-9) 14 % (0-9) Eosinophils (%) (Auto) 4 % (0-3) 5 % (0-3) Basophils (%) (Auto) 1 % (0-3) 0 % (0-3) Neutrophils # (Auto) 2.8 x10^3uL (1.8-7.7) 2.1 x10^3uL (1.8-7.7) Lymphocytes # (Auto) 1.5 x10^3/uL (1.0-4.8) 1.3 x10^3/uL (1.0-4.8) Monocytes # (Auto) 0.6 x10^3/uL (0.0-1.1) 0.6 x10^3/uL (0.0-1.1) Eosinophils # (Auto) 0.2 x10^3/uL (0.0-0.7) 0.2 x10^3/uL (0.0-0.7) Basophils # (Auto) 0.0 x10^3/uL (0.0-0.2) 0.0 x10^3/uL (0.0-0.2) Sodium Level 128 mmol/L (136-145) 130 mmol/L (136-145) Potassium Level 3.7 mmol/L (3.5-5.1) 3.9 mmol/L (3.5-5.1) Chloride Level 91 mmol/L (98-107) 95 mmol/L (98-107) Carbon Dioxide Level 28 mmol/L (21-32) 27 mmol/L (21-32) Anion Gap 9 (6-14) 8 (6-14) Blood Urea Nitrogen 21 mg/dL (8-26) 18 mg/dL (8-26) Creatinine 1.6 mg/dL (0.7-1.3) 1.4 mg/dL (0.7-1.3) Estimated GFR (Cockcroft-Gault) 49.8 58.1 BUN/Creatinine Ratio 13 (6-20) Glucose Level 106 mg/dL (70-99) 99 mg/dL (70-99) Calcium Level 9.7 mg/dL (8.5-10.1) 8.6 mg/dL (8.5-10.1) Total Bilirubin 0.7 mg/dL (0.2-1.0) Aspartate Amino Transf (AST/SGOT) 26 U/L (15-37) Alanine Aminotransferase (ALT/SGPT) 13 U/L (16-63) Alkaline Phosphatase 79 U/L (46-116) Troponin I Quantitative 0.089 ng/mL (0.000-0.055) 0.085 ng/mL (0.000-0.055) 0.085 ng/mL (0.000-0.055) Total Protein 6.6 g/dL (6.4-8.2) Albumin 3.3 g/dL (3.4-5.0) Albumin/Globulin Ratio 1.0 (1.0-1.7) Lipase 122 U/L (73-393) Urine Collection Type U cath Urine Color Yellow Urine Clarity Clear Urine pH 5.5 Urine Specific [place] 1.015 Urine Protein 30 mg/dL (NEG-TRACE) Urine Glucose (UA) Negative mg/dL (NEG) Urine Ketones (Stick) Negative mg/dL (NEG) Urine Blood Small (NEG) Urine Nitrite Negative (NEG) Urine Bilirubin Negative (NEG) Urine Urobilinogen Dipstick 0.2 mg/dL (0.2 mg/dL) Urine Leukocyte Esterase Trace (NEG) Urine RBC 3-5 /HPF (0-2) Urine WBC Occ /HPF (0-4) Urine Squamous Epithelial Cells Occ /LPF Urine Amorphous Sediment Present /HPF Urine Bacteria 0 /HPF (0-FEW) Allergies: Coded Allergies: lisinopril (Unverified Allergy, Intermediate, 10/30/14) Medications: Current Medications Medications (Trade) Dose Ordered Sig/Alysia Route PRN Reason Start Time Stop Time Status Last Admin Dose Admin Fentanyl Citrate (Fentanyl 2ml Vial) 25 mcg PRN Q15MIN PRN IV PAIN GREATER THAN 10/3002/08/17 15:45 02/09/17 15:44 02/08/17 16:12 Ondansetron HCl (Zofran) 4 mg 1X ONCE IV 02/08/17 15:45 02/08/17 15:46 DC 02/08/17 16:10 Sodium Chloride 1,000 ml @ 100 mls/hr 1X ONCE IV 02/08/17 15:45 02/09/17 01:44 DC 02/08/17 16:09 Iohexol (Omnipaque 300 Mg/ml) 60 ml 1X ONCE IV 02/08/17 17:00 02/08/17 17:01 DC 02/08/17 17:02 Ceftriaxone Sodium 50 ml @ 100 mls/hr 1X ONCE IV 02/08/17 17:45 02/08/17 18:14 DC 02/08/17 18:14 Sodium Chloride 1,000 ml @ 100 mls/hr Q10H IV 02/08/17 18:01 02/09/17 18:00 02/09/17 03:57 Amlodipine Besylate (Norvasc) 5 mg 1X ONCE PO 02/09/17 04:30 02/09/17 04:31 DC 02/09/17 04:13 Imaging: Imaging: CT A/P IMPRESSION: 1. No acute amount of abdomen or pelvis. Normal appendix. 2. Diverticulosis with no evidence of acute diverticulitis. 3. 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 4. Cholelithiasis. CXR IMPRESSION: No radiographic evidence of an acute cardiopulmonary abnormality. PE: GEN: NAD HEENT: Atraumatic LUNGS: CTAB anteriorly HEART: distant ABD: NABS, S/ND, only some right/periumbilical discomfort on my exam EXTREMITY: No edema SKIN: No rashes, no jaundice NEURO/PSYCH: A & O 3 A/P: A/P: Abd/flank pain -mostly left-sided, some shift to right -unrelated to eating, ongoing x 1 month (although note EGD from 2005 for LUQ pain) Decreased appetite (intermittent), weight loss H/o H. pylori -?treated CRC screen, h/o adenomatous colon polyp -last colonoscopy 2003 Cholelithiasis -seems asymptomatic ?UTI -recent dysuria, atbx as outpt, on IV atbx here -per primary Elevated troponin -per primary KATERINA -renal consulted -- ?try PPI Will add Miralax. Other per Dr. Nash. NAY RODRIGUEZ Feb 09, 2017 10:18
--- NOTE | 2017-02-09 11:51 | PDOC2 ---
CONSULT Date of Consult Date of Consult DATE: 02/09/17 TIME: 11:28 Reason for Consult Reason for Consult: KATERINA Referring Physician Referring Physician: Dr Marquez Identification/Chief Complaint Chief Complaint abd pain Problems: Source Source: Chart review, Patient History of Present Illness Reason for Visit: as dictated Past Medical History Cardiovascular: HTN Psych: Depression Renal/: Benign prostatic enlarg. Family History Family History: No Significant, Diabetes, Hypertension, Kidney Disease Social History No ALCOHOL: none Lives: with Family Current Problem List Problem List Problems Medical Problems: (1) Elevated troponin Status: Acute (2) Hyponatremia Status: Acute Current Medications Current Medications Current Medications Fentanyl Citrate (Fentanyl 2ml Vial) 25 mcg PRN Q15MIN PRN IV PAIN GREATER THAN 3/10 Last administered on 02/08/17 16:12; Start 02/08/17 at 15:45; Stop at 15:44 Ondansetron HCl (Zofran) 4 mg 1X ONCE IV Last administered on 02/08/17 16:10 ; Start 02/08/17 at 15:45; Stop 02/08/17 at 15:46; Status DC Sodium Chloride 1,000 ml @ 100 mls/hr 1X ONCE IV Last administered on 16:09; Start 02/08/17 at 15:45; Stop 02/09/17 at 01:44; Status DC Iohexol (Omnipaque 300 Mg/ml) 60 ml 1X ONCE IV Last administered on 02/08/17 17:02; Start 02/08/17 at 17:00; Stop 02/08/17 at 17:01; Status DC Info (Do NOT chart on this entry -- for MONITORING) 1 each PRN DAILY PRN MC SEE COMMENTS; Start 02/08/17 at 17:00; Stop 02/10/17 at 16:59 Ceftriaxone Sodium 50 ml @ 100 mls/hr 1X ONCE IV Last administered on 18:14; Start 02/08/17 at 17:45; Stop 02/08/17 at 18:14; Status DC Ondansetron HCl (Zofran) 4 mg PRN Q8HRS PRN IV NAUSEA/VOMITING; Start 02/08/17 at 18:15; Stop 02/09/17 at 18:14 Fentanyl Citrate (Fentanyl 2ml Vial) 25 mcg PRN Q1HR PRN IV PAIN; Start at 18:15; Stop 02/09/17 at 18:14 Sodium Chloride 1,000 ml @ 100 mls/hr Q10H IV Last administered on 02/09/17t 03:57; Start 02/08/17 at 18:01; Stop 02/09/17 at 18:00 Acetaminophen (Tylenol) 650 mg PRN Q4HRS PRN PO FEVER; Start 02/08/17 at 18:15 ; Stop 02/09/17 at 18:14 Insulin Aspart (NovoLOG) 0-5 UNITS TIDWMEALS SQ ; Start 02/09/17 at 08:00; Stop 02/09/17 at 08:45; Status DC Dextrose (Dextrose 50%-Water Syringe) 12.5 gm PRN Q15MIN PRN IV SEE COMMENTS; Start 02/08/17 at 18:15; Stop 02/09/17 at 08:45; Status DC Ceftriaxone Sodium 1 gm/ Sodium Chloride 50 ml @ 100 mls/hr Q24H IV ; Start at 19:00 Amlodipine Besylate (Norvasc) 5 mg 1X ONCE PO Last administered on 02/09/17 04:13; Start 02/09/17 at 04:30; Stop 02/09/17 at 04:31; Status DC Amlodipine Besylate (Norvasc) 5 mg DAILY PO ; Start 02/10/17 at 09:00; Stop at 09:00; Status DC Amlodipine Besylate (Norvasc) 10 mg DAILY PO ; Start 02/10/17 at 09:00 Clonidine HCl (Catapres) 0.2 mg PRN Q4HRS PRN PO HYPERTENSION, SEE COMMENTS; Start 02/09/17 at 08:45 Polyethylene Glycol (miraLAX PACKET) 17 gm DAILY PO ; Start 02/09/17 at 11:00 Pantoprazole Sodium (Protonix) 40 mg DAILYAC PO ; Start 02/09/17 at 11:00 Active Scripts Active Bactrim Ds Tablet (Sulfamethoxazole/Trimethoprim) 1 Each Tablet 1 Each PO BID 14 Days Prednisone 20 Mg Tablet 1 Tab PO DAILY Norvasc (Amlodipine Besylate) 5 Mg Tablet 5 Mg PO DAILY Reported Gabapentin 300 Mg Capsule 300 Mg PO TID Timolol Maleate 10 Ml Drops 1 Drop EACHEYE BID Lumigan (Bimatoprost) 2.5 Ml Drops 1 Drop EACHEYE QHS Citalopram Hbr (Citalopram Hydrobromide) 20 Mg Tablet 20 Mg PO DAILY Vesicare (Solifenacin Succinate) 10 Mg Tablet 10 Mg PO DAILY Allergies Allergies: Coded Allergies: lisinopril (Unverified Allergy, Intermediate, 10/30/14) ROS Review of System GEN: no Fevers no Chills EYES: no new Visual Complaints ENT: no EN Drainage no Hearing deficiets CVS: no Orthopnea no CP RESP: no SOB no HARVEY GI: no Nausea 1 x Vomiting Diarrhea none : + Dysuria occ Urgency HEME: no easy bruising no Palp Ly Nodes NEURO no Focal Weakness no Sz PSYCH: no Suicidal Ideation no Depression SKIN: no Rashes ENDO: no Polyuria or Polydipsia no Hot/Cold Intolerance MU SK: no Arthraigia no Myalgia Physical Exam Physical Exam General Appearance: Awake Alert Oriented x 3 In no Distress Eyes: VIsion Unchanged Conjunctiva Normal EN: No EN Drainage Mucous Memb. moist Neck: no JVD min JVP Supple no Thyromegaly CVS: S1 S2 ? Murmur No Gallop No Rub no Edema Resp: no Rales no Rhonchi no Acc. Muscle use GI: BAS +ve NO Bruit Non Tender Non Distended : no CVA tenderness; no Suprapubic Tenderness SKIN: no Rashes Breast Exam deferred Mu.Sk: Adequate ROM + Muscle Atrophy in his hands Heme: Unable to palpate Obvious LAD no palp Splenomegaly NEURO: Good Strength and Tone Cranial Nerves II - XII grossly intact Psych: ? Depressed no Active hallucination - some underlying dementia cannot be ruled out Vital Signs Vital Signs Date Time Temp Pulse Resp B/P (MAP) Pulse Ox O2 Delivery O2 Flow Rate FiO2 02/09/17 11:00 98.1 67 18 124/72 (89) 96 Room Air 98.1 Assessment & Plan KATERINA - due to Bactrim use - anticipate resolution over the next few days. Current FLuid and E-lyte status does not necessitate emergent need for Dialysis. Will re-evaluate for Dialysis in am Hyponatremia - improving with IVF HTN with possible underlying CKD Cannot be ruled out: may need PATRICK Eval as ordered. Current BP meds reviewed. See orders for changes. Anemia - watch trend - may need Iron check Discussed Plan of Care and prognosis etc. at length with family. Labs Labs Laboratory Tests Test 02/08/17 15:51 02/08/17 16:50 02/08/17 21:55 02/09/17 04:25 White Blood Count 5.1 x10^3/uL (4.0-11.0) 4.2 x10^3/uL (4.0-11.0) Red Blood Count 4.11 x10^6/uL (4.30-5.70) 3.70 x10^6/uL (4.30-5.70) Hemoglobin 13.2 g/dL (13.0-17.5) 12.0 g/dL (13.0-17.5) Hematocrit 39.4 % (39.0-53.0) 35.1 % (39.0-53.0) Mean Corpuscular Volume 96 fL (79-100) 95 fL (79-100) Mean Corpuscular Hemoglobin 32 pg (25-35) 32 pg (25-35) Mean Corpuscular Hemoglobin Concent 33 g/dL (31-37) 34 g/dL (31-37) Red Cell Distribution Width 13.3 % (11.5-14.5) 13.0 % (11.5-14.5) Platelet Count 203 x10^3/uL (140-400) 170 x10^3/uL (140-400) Neutrophils (%) (Auto) 54 % (31-73) 51 % (31-73) Lymphocytes (%) (Auto) 29 % (24-48) 30 % (24-48) Monocytes (%) (Auto) 12 % (0-9) 14 % (0-9) Eosinophils (%) (Auto) 4 % (0-3) 5 % (0-3) Basophils (%) (Auto) 1 % (0-3) 0 % (0-3) Neutrophils # (Auto) 2.8 x10^3uL (1.8-7.7) 2.1 x10^3uL (1.8-7.7) Lymphocytes # (Auto) 1.5 x10^3/uL (1.0-4.8) 1.3 x10^3/uL (1.0-4.8) Monocytes # (Auto) 0.6 x10^3/uL (0.0-1.1) 0.6 x10^3/uL (0.0-1.1) Eosinophils # (Auto) 0.2 x10^3/uL (0.0-0.7) 0.2 x10^3/uL (0.0-0.7) Basophils # (Auto) 0.0 x10^3/uL (0.0-0.2) 0.0 x10^3/uL (0.0-0.2) Sodium Level 128 mmol/L (136-145) 130 mmol/L (136-145) Potassium Level 3.7 mmol/L (3.5-5.1) 3.9 mmol/L (3.5-5.1) Chloride Level 91 mmol/L (98-107) 95 mmol/L (98-107) Carbon Dioxide Level 28 mmol/L (21-32) 27 mmol/L (21-32) Anion Gap 9 (6-14) 8 (6-14) Blood Urea Nitrogen 21 mg/dL (8-26) 18 mg/dL (8-26) Creatinine 1.6 mg/dL (0.7-1.3) 1.4 mg/dL (0.7-1.3) Estimated GFR (Cockcroft-Gault) 49.8 58.1 BUN/Creatinine Ratio 13 (6-20) Glucose Level 106 mg/dL (70-99) 99 mg/dL (70-99) Calcium Level 9.7 mg/dL (8.5-10.1) 8.6 mg/dL (8.5-10.1) Total Bilirubin 0.7 mg/dL (0.2-1.0) Aspartate Amino Transf (AST/SGOT) 26 U/L (15-37) Alanine Aminotransferase (ALT/SGPT) 13 U/L (16-63) Alkaline Phosphatase 79 U/L (46-116) Troponin I Quantitative 0.089 ng/mL (0.000-0.055) 0.085 ng/mL (0.000-0.055) 0.085 ng/mL (0.000-0.055) Total Protein 6.6 g/dL (6.4-8.2) Albumin 3.3 g/dL (3.4-5.0) Albumin/Globulin Ratio 1.0 (1.0-1.7) Lipase 122 U/L (73-393) Urine Collection Type U cath Urine Color Yellow Urine Clarity Clear Urine pH 5.5 Urine Specific [place] 1.015 Urine Protein 30 mg/dL (NEG-TRACE) Urine Glucose (UA) Negative mg/dL (NEG) Urine Ketones (Stick) Negative mg/dL (NEG) Urine Blood Small (NEG) Urine Nitrite Negative (NEG) Urine Bilirubin Negative (NEG) Urine Urobilinogen Dipstick 0.2 mg/dL (0.2 mg/dL) Urine Leukocyte Esterase Trace (NEG) Urine RBC 3-5 /HPF (0-2) Urine WBC Occ /HPF (0-4) Urine Squamous Epithelial Cells Occ /LPF Urine Amorphous Sediment Present /HPF Urine Bacteria 0 /HPF (0-FEW) Laboratory Tests Test 02/08/17 15:51 02/08/17 16:50 02/08/17 21:55 02/09/17 04:25 White Blood Count 5.1 x10^3/uL (4.0-11.0) 4.2 x10^3/uL (4.0-11.0) Red Blood Count 4.11 x10^6/uL (4.30-5.70) 3.70 x10^6/uL (4.30-5.70) Hemoglobin 13.2 g/dL (13.0-17.5) 12.0 g/dL (13.0-17.5) Hematocrit 39.4 % (39.0-53.0) 35.1 % (39.0-53.0) Mean Corpuscular Volume 96 fL (79-100) 95 fL (79-100) Mean Corpuscular Hemoglobin 32 pg (25-35) 32 pg (25-35) Mean Corpuscular Hemoglobin Concent 33 g/dL (31-37) 34 g/dL (31-37) Red Cell Distribution Width 13.3 % (11.5-14.5) 13.0 % (11.5-14.5) Platelet Count 203 x10^3/uL (140-400) 170 x10^3/uL (140-400) Neutrophils (%) (Auto) 54 % (31-73) 51 % (31-73) Lymphocytes (%) (Auto) 29 % (24-48) 30 % (24-48) Monocytes (%) (Auto) 12 % (0-9) 14 % (0-9) Eosinophils (%) (Auto) 4 % (0-3) 5 % (0-3) Basophils (%) (Auto) 1 % (0-3) 0 % (0-3) Neutrophils # (Auto) 2.8 x10^3uL (1.8-7.7) 2.1 x10^3uL (1.8-7.7) Lymphocytes # (Auto) 1.5 x10^3/uL (1.0-4.8) 1.3 x10^3/uL (1.0-4.8) Monocytes # (Auto) 0.6 x10^3/uL (0.0-1.1) 0.6 x10^3/uL (0.0-1.1) Eosinophils # (Auto) 0.2 x10^3/uL (0.0-0.7) 0.2 x10^3/uL (0.0-0.7) Basophils # (Auto) 0.0 x10^3/uL (0.0-0.2) 0.0 x10^3/uL (0.0-0.2) Sodium Level 128 mmol/L (136-145) 130 mmol/L (136-145) Potassium Level 3.7 mmol/L (3.5-5.1) 3.9 mmol/L (3.5-5.1) Chloride Level 91 mmol/L (98-107) 95 mmol/L (98-107) Carbon Dioxide Level 28 mmol/L (21-32) 27 mmol/L (21-32) Anion Gap 9 (6-14) 8 (6-14) Blood Urea Nitrogen 21 mg/dL (8-26) 18 mg/dL (8-26) Creatinine 1.6 mg/dL (0.7-1.3) 1.4 mg/dL (0.7-1.3) Estimated GFR (Cockcroft-Gault) 49.8 58.1 BUN/Creatinine Ratio 13 (6-20) Glucose Level 106 mg/dL (70-99) 99 mg/dL (70-99) Calcium Level 9.7 mg/dL (8.5-10.1) 8.6 mg/dL (8.5-10.1) Total Bilirubin 0.7 mg/dL (0.2-1.0) Aspartate Amino Transf (AST/SGOT) 26 U/L (15-37) Alanine Aminotransferase (ALT/SGPT) 13 U/L (16-63) Alkaline Phosphatase 79 U/L (46-116) Troponin I Quantitative 0.089 ng/mL (0.000-0.055) 0.085 ng/mL (0.000-0.055) 0.085 ng/mL (0.000-0.055) Total Protein 6.6 g/dL (6.4-8.2) Albumin 3.3 g/dL (3.4-5.0) Albumin/Globulin Ratio 1.0 (1.0-1.7) Lipase 122 U/L (73-393) Urine Collection Type U cath Urine Color Yellow Urine Clarity Clear Urine pH 5.5 Urine Specific [place] 1.015 Urine Protein 30 mg/dL (NEG-TRACE) Urine Glucose (UA) Negative mg/dL (NEG) Urine Ketones (Stick) Negative mg/dL (NEG) Urine Blood Small (NEG) Urine Nitrite Negative (NEG) Urine Bilirubin Negative (NEG) Urine Urobilinogen Dipstick 0.2 mg/dL (0.2 mg/dL) Urine Leukocyte Esterase Trace (NEG) Urine RBC 3-5 /HPF (0-2) Urine WBC Occ /HPF (0-4) Urine Squamous Epithelial Cells Occ /LPF Urine Amorphous Sediment Present /HPF Urine Bacteria 0 /HPF (0-FEW) Images Images Kidneys are symmetric in size and enhancement. There is mild atrophy. No hydronephrosis. Images of the pelvis shows nondistended urinary bladder. Prostate gland upper limits of normal in size. No free fluid or pelvic lymphadenopathy. There is a stent in the right external iliac artery. Possible stent in the left common iliac artery. 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 AMI SAXENA MD Feb 09, 2017 11:50
[2017-02-09] MEDS: PANTOPRAZOLE 40 MG TABLET.DR. PO SCH (11:58)
[2017-02-09] MEDS: POLYETHYLENE GLYCOL 3350 17 GM PACKET. PO SCH (11:58)
[2017-02-09] MEDS ORDERED: MAGNESIUM SULFATE 2GM 50 ML IV PRN (12:00)
[2017-02-09] MEDS ORDERED: hydrALAZINE 20 MG/ML VIAL. IVP PRN (12:00)
[2017-02-09] MEDS ORDERED: HYDR12.58 PO (12:05)
[2017-02-09] MEDS ORDERED: VENTOLIN HFA18 GM INH (12:08)
[2017-02-09] MEDS ORDERED: ALBUTEROL SULFATE 2.5 MG/3 ML NEBU. NEB PRN (13:45)
--- NOTE | 2017-02-09 14:11 | PDOC2 ---
PATRICK VALENTINO MUSTANGER 02/09/17 1411: CARDIAC CONSULT DATE OF CONSULT Date of Consult DATE: 02/09/17 TIME: 14:04 REASON FOR CONSULT Reason for Consult: V-tach REFERRING PHYSICIAN Referring Physician: Dr. Marquez SOURCE Source: Chart review, Patient HISTORY OF PRESENT ILLNESS HISTORY OF PRESENT ILLNESS This is an 86 yo male who presented with complaints of left flank and abdominal pain; admitted for dehydration. Symptoms have been ongoing for the last month. Recently treated for UTI on an outpatient basis. Patient additionally reports pedal edema for the last couple of months. Reports chronic SOA with h/o COPD. Denies any chest pain, palpitations, dizziness, diaphoresis, or nausea/ vomiting. No prior h/o CHF or recent cardiac workup. Lives sedentary lifestyle with minimal activity. PAST MEDICAL HISTORY Cardiovascular: HTN, Hyperlipidemia, Other (PAD s/p remote stent ) Pulmonary: COPD CENTRAL NERVOUS SYSTEM: Periperal neuropathy GI: Diverticulosis Heme/Onc: No pertinent hx Hepatobiliary: No pertinent hx Psych: Depression Musculoskeletal: Osteoarthritis Infectious disease: No pertinent hx ENT: No pertinent hx Renal/: UTI Endocrine: No pertinent hx Dermatology: No pertinent hx PAST SURGICAL HISTORY Past Surgical History: Other (left knee sx. See PMH) FAMILY HISTORY Family History: Coronary Artery Disease, Hypertension SOCIAL HISTORY Smoke: <1 pack per day ALCOHOL: none Drugs: None Lives: with Family CURRENT MEDICATIONS CURRENT MEDICATIONS Current Medications Medications (Trade) Dose Ordered Sig/Alysia Route PRN Reason Start Time Stop Time Status Last Admin Dose Admin Fentanyl Citrate (Fentanyl 2ml Vial) 25 mcg PRN Q15MIN PRN IV PAIN GREATER THAN 3/10 02/08/17 15:45 02/09/17 15:44 02/08/17 16:12 Ondansetron HCl (Zofran) 4 mg 1X ONCE IV 02/08/17 15:45 02/08/17 15:46 DC 02/08/17 16:10 Sodium Chloride 1,000 ml @ 100 mls/hr 1X ONCE IV 02/08/17 15:45 02/09/17 01:44 DC 02/08/17 16:09 Iohexol (Omnipaque 300 Mg/ml) 60 ml 1X ONCE IV 02/08/17 17:00 02/08/17 17:01 DC 02/08/17 17:02 Ceftriaxone Sodium 50 ml @ 100 mls/hr 1X ONCE IV 02/08/17 17:45 02/08/17 18:14 DC 02/08/17 18:14 Sodium Chloride 1,000 ml @ 100 mls/hr Q10H IV 02/08/17 18:01 02/09/17 18:00 02/09/17 13:13 Amlodipine Besylate (Norvasc) 5 mg 1X ONCE PO 02/09/17 04:30 02/09/17 04:31 DC 02/09/17 04:13 Polyethylene Glycol (miraLAX PACKET) 17 gm DAILY PO 02/09/17 11:00 02/09/17 11:58 Pantoprazole Sodium (Protonix) 40 mg DAILYAC PO 02/09/17 11:00 02/09/17 11:58 ALLERGIES ALLERGIES: Coded Allergies: lisinopril (Unverified Allergy, Intermediate, 10/30/14) ROS Review of System 14 point ROS conducted with pertinent positives noted above in HPI. PHYSICAL EXAM General: Alert, Oriented X3, Cooperative, No acute distress HEENT: Atraumatic Lungs: Clear to auscultation, Normal air movement Heart: Regular rate, Normal S1, Normal S2, Other (distant heart tones ) Abdomen: Soft, No tenderness, Other (RLQ pain with palpation) Extremities: Normal pulses, Other (trace pedal edema ) Skin: No breakdown, No significant lesion Neuro: Normal speech, Sensation intact Psych/Mental Status: Mental status NL, Mood NL MUSCULOSKELETAL: Osteoarthritic changes both hands VITALS VITALS Vital Signs Date Time Temp Pulse Resp B/P (MAP) Pulse Ox O2 Delivery O2 Flow Rate FiO2 02/09/17 11:00 98.1 67 18 124/72 (89) 96 Room Air 98.1 LABS Lab: Laboratory Tests Test 02/08/17 15:51 02/08/17 16:50 02/08/17 21:55 02/09/17 04:25 White Blood Count 5.1 x10^3/uL (4.0-11.0) 4.2 x10^3/uL (4.0-11.0) Red Blood Count 4.11 x10^6/uL (4.30-5.70) 3.70 x10^6/uL (4.30-5.70) Hemoglobin 13.2 g/dL (13.0-17.5) 12.0 g/dL (13.0-17.5) Hematocrit 39.4 % (39.0-53.0) 35.1 % (39.0-53.0) Mean Corpuscular Volume 96 fL (79-100) 95 fL (79-100) Mean Corpuscular Hemoglobin 32 pg (25-35) 32 pg (25-35) Mean Corpuscular Hemoglobin Concent 33 g/dL (31-37) 34 g/dL (31-37) Red Cell Distribution Width 13.3 % (11.5-14.5) 13.0 % (11.5-14.5) Platelet Count 203 x10^3/uL (140-400) 170 x10^3/uL (140-400) Neutrophils (%) (Auto) 54 % (31-73) 51 % (31-73) Lymphocytes (%) (Auto) 29 % (24-48) 30 % (24-48) Monocytes (%) (Auto) 12 % (0-9) 14 % (0-9) Eosinophils (%) (Auto) 4 % (0-3) 5 % (0-3) Basophils (%) (Auto) 1 % (0-3) 0 % (0-3) Neutrophils # (Auto) 2.8 x10^3uL (1.8-7.7) 2.1 x10^3uL (1.8-7.7) Lymphocytes # (Auto) 1.5 x10^3/uL (1.0-4.8) 1.3 x10^3/uL (1.0-4.8) Monocytes # (Auto) 0.6 x10^3/uL (0.0-1.1) 0.6 x10^3/uL (0.0-1.1) Eosinophils # (Auto) 0.2 x10^3/uL (0.0-0.7) 0.2 x10^3/uL (0.0-0.7) Basophils # (Auto) 0.0 x10^3/uL (0.0-0.2) 0.0 x10^3/uL (0.0-0.2) Sodium Level 128 mmol/L (136-145) 130 mmol/L (136-145) Potassium Level 3.7 mmol/L (3.5-5.1) 3.9 mmol/L (3.5-5.1) Chloride Level 91 mmol/L (98-107) 95 mmol/L (98-107) Carbon Dioxide Level 28 mmol/L (21-32) 27 mmol/L (21-32) Anion Gap 9 (6-14) 8 (6-14) Blood Urea Nitrogen 21 mg/dL (8-26) 18 mg/dL (8-26) Creatinine 1.6 mg/dL (0.7-1.3) 1.4 mg/dL (0.7-1.3) Estimated GFR (Cockcroft-Gault) 49.8 58.1 BUN/Creatinine Ratio 13 (6-20) Glucose Level 106 mg/dL (70-99) 99 mg/dL (70-99) Calcium Level 9.7 mg/dL (8.5-10.1) 8.6 mg/dL (8.5-10.1) Total Bilirubin 0.7 mg/dL (0.2-1.0) Aspartate Amino Transf (AST/SGOT) 26 U/L (15-37) Alanine Aminotransferase (ALT/SGPT) 13 U/L (16-63) Alkaline Phosphatase 79 U/L (46-116) Troponin I Quantitative 0.089 ng/mL (0.000-0.055) 0.085 ng/mL (0.000-0.055) 0.085 ng/mL (0.000-0.055) Total Protein 6.6 g/dL (6.4-8.2) Albumin 3.3 g/dL (3.4-5.0) Albumin/Globulin Ratio 1.0 (1.0-1.7) Lipase 122 U/L (73-393) Urine Collection Type U cath Urine Color Yellow Urine Clarity Clear Urine pH 5.5 Urine Specific [place] 1.015 Urine Protein 30 mg/dL (NEG-TRACE) Urine Glucose (UA) Negative mg/dL (NEG) Urine Ketones (Stick) Negative mg/dL (NEG) Urine Blood Small (NEG) Urine Nitrite Negative (NEG) Urine Bilirubin Negative (NEG) Urine Urobilinogen Dipstick 0.2 mg/dL (0.2 mg/dL) Urine Leukocyte Esterase Trace (NEG) Urine RBC 3-5 /HPF (0-2) Urine WBC Occ /HPF (0-4) Urine Squamous Epithelial Cells Occ /LPF Urine Amorphous Sediment Present /HPF Urine Bacteria 0 /HPF (0-FEW) ASSESSMENT/PLAN ASSESSMENT/PLAN 1. Ventricular arrhythmia; couple short runs of NSVT noted on telemetry, otherwise mainly artifact 2. Mild troponin elevation; peak 0.089. CP free. Doubt ACS 3. Hypertension 4. Hyperlipidemia 5. KATERINA with ? CKD 6. Flank/abdominal pain; GI following 7. Hyponatremia; improving with IVF 8. ? UTI; antibiotic therapy as per IM Recommendations Check Mg, TSH. Replace electrolytes as warranted. Obtain echo to assess LV function/ presence of WMA Allergy to DELBERT No aggressive diuresis warranted at this time. Supportive care. Recommend conservative management given advanced age and sedentary lifestyle. Further recommendations pending diagnostics Problems: KATELYN KIMBROUGH MD 02/09/17 1733: CARDIAC CONSULT ALLERGIES ALLERGIES: Coded Allergies: lisinopril (Unverified Allergy, Intermediate, 10/30/14) ASSESSMENT/PLAN ASSESSMENT/PLAN Patient seen and examined. Agree with ROOFER APPLICATOR's assessment and plan. Agree with checking magnesium level secondary to his brief NSVT. 2-D echo showed normal LV systolic function without any wall motion abnormalities. Doubt ACS. Continue workup for abdominal pain per GI team. Thank you for your consultation. Problems: PATRICK VALENTINO APRN Feb 09, 2017 14:11 KATELYN KIMBROUGH MD Feb 09, 2017 17:33
[2017-02-09] MEDS: GABAPENTIN 300 MG CAPSULE. PO SCH ×2 (14:48→20:51)
[2017-02-09] MEDS: CITALOPRAM 20 MG TABLET. PO SCH (14:49)
[2017-02-09] MEDS: OXYBUTYNIN CHLORIDE 5 MG TABLET PO SCH ×2 (14:49→20:51)
--- NOTE | 2017-02-09 17:02 | CARD ---
APPROVED REPORT EXAM: Two-dimensional and M-mode echocardiogram with Doppler and color Doppler. Other Information Quality : Good INDICATION Elevated Troponin, Ventricular Arrythmia 2D DIMENSIONS RVDd2.6 (2.9-3.5cm)Left Atrium(2D)3.2 (1.6-4.0cm) IVSd1.2 (0.7-1.1cm)Aortic Root(2D)3.2 (2.0-3.7cm) LVDd4.6 (3.9-5.9cm)LVOT Diameter2.3 (1.8-2.4cm) PWd1.1 (0.7-1.1cm)LVDs3.3 (2.5-4.0cm) FS (%) 26.7 %SV49.8 ml LVEF(%)52.3 (>50%) Aortic Valve AoV Peak Jose A.125.9cm/sAoV VTI22.4cm AO Peak GR.6.3mmHgLVOT Peak Jose A.117.3cm/s LVOT VTI 19.98cmAO Mean GR.3mmHg VIVI (VMAX)3.69ha8AFE (VTI)3.63cm2 Mitral Valve MV E Yizbqbtd15.6cm/sMV DECEL [id number] MV A Usgrgkpz11.3cm/sMV [id number] E/A Ratio0.4MVA (PHT)1.39cm2 TDI E/Lateral E'7.7E/Medial E'11.1 Tricuspid Valve TR P. [id number] [id number] TR Peak Gr.[id number] LEFT VENTRICLE The left ventricle is normal size. There is mild concentric left ventricular hypertrophy. Left ventri leeann systolic function is normal. The Ejection Fraction is 55-60%. There is normal LV segmental wall m otion. Transmitral Doppler flow pattern is Grade I-abnormal relaxation pattern. RIGHT VENTRICLE The right ventricle is normal size. The right ventricular systolic function is normal. ATRIA The left atrium size is normal. The right atrium size is normal. The interatrial septum is intact wit h no evidence for an atrial septal defect or patent foramen ovale as noted on 2-D or Doppler imaging. AORTIC VALVE The aortic valve is calcified but opens well. Doppler and Color Flow revealed no significant aortic r egurgitation. There is no significant aortic valvular stenosis. MITRAL VALVE The mitral valve is calcified but opens well. There is no evidence of mitral valve prolapse. There is no mitral valve stenosis. Doppler and Color-flow revealed trace to mild mitral regurgitation. TRICUSPID VALVE The tricuspid valve is normal in structure and function. Doppler and Color Flow revealed mild tricusp id regurgitation. There is mild pulmonary hypertension. The PA pressure was estimated at 39 mmHg. The re is no tricuspid valve stenosis. PULMONIC VALVE The pulmonic valve is not well visualized. GREAT VESSELS The aortic root is normal in size. The ascending aorta is not well seen. The IVC is normal in size an d collapses >50% with inspiration. PERICARDIAL EFFUSION There is no evidence of significant pericardial effusion. Critical Notification Critical Value: No <Conclusion> Left ventricle systolic function is normal. The Ejection Fraction is 55-60%. There is normal LV segmental wall motion. Transmitral Doppler flow pattern is Grade I-abnormal relaxation pattern. Trace to mild mitral regurgitation. Mild tricuspid regurgitation. There is mild pulmonary hypertension. The PA pressure was estimated at 39 mmHg. There is no evidence of significant pericardial effusion.
[2017-02-09] MEDS: ASPIRIN ENTERIC COATED 81 MG TABLET.DR. PO SCH (17:37)
[2017-02-09] MEDS: LATANOPROST 0.005% OPHTH SOLUTION 2.5ML BOTTLE. OU SCH (20:51)
[2017-02-09] MEDS: TIMOLOL 0.5% OPHTH SOLUTION 5ML BOTTLE. OU SCH ×2 (20:51→20:55)
[2017-02-10] MEDS ORDERED: ACETAMINOPHEN 325 MG TABLET. PO PRN (02:15)
[2017-02-10 03:31] VITALS: BP 154/98
[2017-02-10 03:58] LABS: ALBUMIN 2.5 g/dL (3.4-5.0); CALCIUM 7.9 mg/dL (8.5-10.1); CREATININE 1.4 mg/dL (0.7-1.3); GFR 58.1; MAGNESIUM 1.6 mg/dL (1.8-2.4); PHOSPHORUS 2.8 mg/dL (2.6-4.7)
[2017-02-10 04:07] LABS: CHOLESTEROL/HDL RATIO 3.4
--- NOTE | 2017-02-10 04:10 | CONS ---
DATE OF CONSULTATION: PRIMARY PHYSICIAN: Celine Marquez DO REASON FOR CONSULTATION: Acute renal failure. HISTORY OF PRESENT ILLNESS: The patient is an 86-year-old -[place] gentleman followed by Dr. Flores. He is not known to have any renal insufficiency; however, developed some dysuria. His tells me he had a urinary tract infection and was given Bactrim. He finished his Bactrim a few days ago. He presented to the ER with complaints of abdominal pain and discomfort. This has since resolved. CT scan of his abdomen and pelvis were undertaken, which did not show any gross abnormalities in the kidney, other than mild atrophy, no hydronephrosis. He does appear to have signs of vasculopathy, however, they have not mentioned much about the level of atherosclerosis in his renal artery. His blood pressures were noted to be in the 180s currently. He is on p.r.n. medications. Heart rate is in the 50s also. He does have a family history of kidney disease in two sons though. Denies NSAID use at this time. He is known to have an enlarged prostate and has not had a digital rectal exam by his reports. For rest of details, see electronic records. [facility] MD DR: JOSE R/chung JOB#: [id number] / [id number]
[2017-02-10 07:05] VITALS: BP 181/100
[2017-02-10] MEDS: amLODIPine BESYLATE 5 MG TABLET PO SCH (09:00)
[2017-02-10] MEDS ORDERED: amLODIPine BESYLATE 10 MG TABLET PO SCH (09:00)
[2017-02-10] MEDS: hydroCHLOROthiazide 25 MG TABLET PO SCH (09:00)
[2017-02-10] MEDS ORDERED: amLODIPine BESYLATE 5 MG TABLET PO SCH (09:00)
[2017-02-10] MEDS: POLYETHYLENE GLYCOL 3350 17 GM PACKET. PO SCH (09:03)
[2017-02-10] MEDS: PANTOPRAZOLE 40 MG TABLET.DR. PO SCH (09:03)
[2017-02-10] MEDS: ASPIRIN ENTERIC COATED 81 MG TABLET.DR. PO SCH (09:04)
[2017-02-10] MEDS: CITALOPRAM 20 MG TABLET. PO SCH (09:04)
[2017-02-10] MEDS: GABAPENTIN 300 MG CAPSULE. PO SCH ×3 (09:04→20:42)
[2017-02-10] MEDS: OXYBUTYNIN CHLORIDE 5 MG TABLET PO SCH ×3 (09:06→20:42)
[2017-02-10 10:40] VITALS: BP 148/71
--- NOTE | 2017-02-10 11:32 | PDOC ---
Subjective: Subjective: Feels a little better. Objective: Vital Signs: Vital Signs Date Time Temp Pulse Resp B/P (MAP) Pulse Ox O2 Delivery O2 Flow Rate FiO2 02/10/17 10:40 98.1 59 18 148/71 (96) 96 Room Air 98.1 Labs: Laboratory Tests Test 02/10/17 03:20 Hemoglobin 11.3 g/dL Sodium Level 132 mmol/L Potassium Level 4.0 mmol/L Chloride Level 99 mmol/L Carbon Dioxide Level 29 mmol/L Anion Gap 4 Blood Urea Nitrogen 15 mg/dL Creatinine 1.4 mg/dL Estimated GFR (Cockcroft-Gault) 58.1 Glucose Level 94 mg/dL Calcium Level 7.9 mg/dL Phosphorus Level 2.8 mg/dL Magnesium Level 1.6 mg/dL Albumin 2.5 g/dL Triglycerides Level 59 mg/dL Cholesterol Level 186 mg/dL LDL Cholesterol, Calculated 119 mg/dL VLDL Cholesterol, Calculated 12 mg/dL Non-HDL Cholesterol Calculated 131 mg/dL HDL Cholesterol 55 mg/dL Cholesterol/HDL Ratio 3.4 PE: GEN: NAD LUNGS: CTAB HEART: RRR ABD: NABS, S/ND/NT NEURO/PSYCH: A & O 3 A/P: Abd/flank pain -mostly left-sided KATERINA -- Continue PPI. NAY RODRIGUEZ Feb 10, 2017 11:32
--- NOTE | 2017-02-10 12:25 | PDOC ---
SUBJECTIVE ROS KATERINA/ ? CKD III Doign OK. ABd pain is better but has not had a BM; asking about going home CVS: no Orthopnea, no CP RESP: no SOB, no HARVEY GI: no Nausea, no Vomiting : no Dysuria, no Urgency OBJECTIVE Vital Signs Vital Signs Date Time Temp Pulse Resp B/P (MAP) Pulse Ox O2 Delivery O2 Flow Rate FiO2 02/10/17 10:40 98.1 59 18 148/71 (96) 96 Room Air 98.1 I & 0 Intake and Output 02/10/17 07:00 Intake Total 1100 ml Output Total 1550 ml Balance -450 ml Intake Oral 1100 ml Output Urine Total 1550 ml # Voids 2 PHYSICAL EXAM Physical Exam General Appearance: Awake Alert Oriented x 3 In no Distress Eyes: VIsion Unchanged Conjunctiva Normal EN: No EN Drainage Mucous Memb. moist Neck: no JVD min JVP Supple no Thyromegaly CVS: S1 S2 ? Murmur No Gallop No Rub no Edema Resp: no Rales no Rhonchi no Acc. Muscle use GI: BS +ve NO Bruit Non Tender Non Distended : no CVA tenderness; no Suprapubic Tenderness Assessment & Plan KATERINA - due to Bactrim use; ? Dehydration - anticipate resolution over the next few days. Current FLuid and E-lyte status does not necessitate emergent need for Dialysis. Will re-evaluate for Dialysis in am Hyponatremia - improving with isotonic IVF ? Renovascular HTN with possible underlying CKD Cannot be ruled out: Pt allergic to DELBERT-i due to prior Angioedema (as doucmented from 2015 d/c summary) and so was unable to do Mag 3 scan. Check Duplex. does not recollect Angioedema and thinks it was due to cough. PharmD to verify ABd Pain and subj COnstipation - once time laxative Anemia - watch trend - may need Iron check Low Mag - replaced as ordered Discussed Plan of Care at length with family. COMMENT/RELEVANT DATA Meds Current Medications Medications (Trade) Dose Ordered Sig/Alysia Start Time Stop Time Status Last Admin Dose Admin Acetaminophen (Tylenol) 650 mg PRN Q6HRS PRN 02/10/17 02:15 Albuterol Sulfate (Ventolin Neb Soln) 2.5 mg PRN Q4HRS PRN 02/09/17 13:45 Amlodipine Besylate (Norvasc) 5 mg DAILY 02/10/17 09:00 Aspirin (Ecotrin) 81 mg DAILYWBKFT 02/09/17 16:00 02/10/17 09:04 81 MG Ceftriaxone Sodium 1 gm/ Sodium Chloride 50 ml @ 100 mls/hr Q24H 02/09/17 19:00 02/09/17 17:38 100 MLS/HR Ceftriaxone Sodium 50 ml @ 100 mls/hr 1X ONCE 02/08/17 17:45 02/08/17 18:14 DC 02/08/17 18:14 100 MLS/HR Citalopram Hydrobromide (CeleXA) 20 mg DAILY 02/09/17 14:00 02/10/17 09:04 20 MG Clonidine HCl (Catapres) 0.2 mg PRN Q4HRS PRN 02/09/17 08:45 02/10/17 09:05 0.2 MG Dextrose (Dextrose 50%-Water Syringe) 12.5 gm PRN Q15MIN PRN 02/08/17 18:15 02/09/17 08:45 DC Fentanyl Citrate (Fentanyl 2ml Vial) 25 mcg PRN Q1HR PRN 02/08/17 18:15 02/09/17 18:14 DC Gabapentin (Neurontin) 300 mg TID 02/09/17 14:00 02/10/17 09:04 300 MG Hydralazine HCl (Apresoline) 10 mg PRN Q4HRS PRN 02/09/17 12:00 Hydrochlorothiazide (Hydrodiuril) 25 mg DAILY 02/10/17 09:00 Info (Do NOT chart on this entry -- for MONITORING) 1 each PRN DAILY PRN 02/08/17 17:00 02/10/17 16:59 Insulin Aspart (NovoLOG) 0-5 UNITS TIDWMEALS 02/09/17 08:00 02/09/17 08:45 DC Iohexol (Omnipaque 300 Mg/ml) 60 ml 1X ONCE 02/08/17 17:00 02/08/17 17:01 DC 02/08/17 17:02 60 ML Latanoprost (Xalatan) 1 drop QHS 02/09/17 21:00 02/09/17 20:51 1 DROP Magnesium Sulfate/ Dextrose 50 ml @ 25 mls/hr PRN DAILY PRN 02/09/17 12:00 02/10/17 09:03 25 MLS/HR Ondansetron HCl (Zofran) 4 mg PRN Q8HRS PRN 02/08/17 18:15 02/09/17 18:14 DC Oxybutynin Chloride (Ditropan) 5 mg [id number] 02/09/17 14:00 02/10/17 09:06 5 MG Pantoprazole Sodium (Protonix) 40 mg DAILYAC 02/09/17 11:00 02/10/17 09:03 40 MG Polyethylene Glycol (miraLAX PACKET) 17 gm DAILY 02/09/17 11:00 02/10/17 09:03 17 GM Sodium Chloride 1,000 ml @ 100 mls/hr Q10H 02/08/17 18:01 02/09/17 18:00 DC 02/09/17 13:13 100 MLS/HR Timolol Maleate (Timoptic 0.5% Oph) 1 drop BID 02/09/17 21:00 Lab Laboratory Tests Test 02/10/17 03:20 Hemoglobin 11.3 g/dL (13.0-17.5) Sodium Level 132 mmol/L (136-145) Potassium Level 4.0 mmol/L (3.5-5.1) Chloride Level 99 mmol/L (98-107) Carbon Dioxide Level 29 mmol/L (21-32) Anion Gap 4 (6-14) Blood Urea Nitrogen 15 mg/dL (8-26) Creatinine 1.4 mg/dL (0.7-1.3) Estimated GFR (Cockcroft-Gault) 58.1 Glucose Level 94 mg/dL (70-99) Calcium Level 7.9 mg/dL (8.5-10.1) Phosphorus Level 2.8 mg/dL (2.6-4.7) Magnesium Level 1.6 mg/dL (1.8-2.4) Albumin 2.5 g/dL (3.4-5.0) Triglycerides Level 59 mg/dL (0-150) Cholesterol Level 186 mg/dL (0-200) LDL Cholesterol, Calculated 119 mg/dL (0-100) VLDL Cholesterol, Calculated 12 mg/dL (0-40) Non-HDL Cholesterol Calculated 131 mg/dL (0-129) HDL Cholesterol 55 mg/dL (40-60) Cholesterol/HDL Ratio 3.4 AMI SAXENA MD Feb 10, 2017 12:25
[2017-02-10] MEDS ORDERED: LACTULOSE 20 GM/30 ML SOLUTION. PO ONE (12:30)
[2017-02-10 12:44] LABS: % SAT IRON 34 % (15-34); IRON,SERUM 74 ug/dL (65-175)
--- NOTE | 2017-02-10 14:22 | PDOC ---
PROGRESS NOTES Chief Complaint Chief Complaint Dehydration Elevated Trop UTI Abd pain Old H/O: Arthritis, diabetes, UTI, glaucoma, hypertension, neuropathy, right shoulder surgery, peripheral vascular disease and right external iliac stent. History of Present Illness History of Present Illness Pt seen and examined VSS but BP up DW RNs Ordered Clonidine and increased Norvasc Vitals Vitals Vital Signs Date Time Temp Pulse Resp B/P (MAP) Pulse Ox O2 Delivery O2 Flow Rate FiO2 02/10/17 10:40 98.1 59 18 148/71 (96) 96 Room Air 98.1 Physical Exam General: Alert, Oriented X3, Cooperative, No acute distress Heart: Regular rate, Normal S1, Normal S2, Other (distant heart tones ) Lungs: Clear Abdomen: Soft, No tenderness, Other (RLQ pain with palpation) Extremities: Normal pulses, Other (trace pedal edema ) Skin: No breakdown, No significant lesion Labs LABS Laboratory Tests Test 02/10/17 03:20 Hemoglobin 11.3 g/dL (13.0-17.5) Reticulocyte Count (auto) 1.8 % (0.5-2.5) Sodium Level 132 mmol/L (136-145) Potassium Level 4.0 mmol/L (3.5-5.1) Chloride Level 99 mmol/L (98-107) Carbon Dioxide Level 29 mmol/L (21-32) Anion Gap 4 (6-14) Blood Urea Nitrogen 15 mg/dL (8-26) Creatinine 1.4 mg/dL (0.7-1.3) Estimated GFR (Cockcroft-Gault) 58.1 Glucose Level 94 mg/dL (70-99) Calcium Level 7.9 mg/dL (8.5-10.1) Phosphorus Level 2.8 mg/dL (2.6-4.7) Magnesium Level 1.6 mg/dL (1.8-2.4) Iron Level 74 ug/dL (65-175) Total Iron Binding Capacity 216 ug/dL (250-450) Iron Saturation 34 % (15-34) Ferritin 289 ng/mL (26-388) Albumin 2.5 g/dL (3.4-5.0) Triglycerides Level 59 mg/dL (0-150) Cholesterol Level 186 mg/dL (0-200) LDL Cholesterol, Calculated 119 mg/dL (0-100) VLDL Cholesterol, Calculated 12 mg/dL (0-40) Non-HDL Cholesterol Calculated 131 mg/dL (0-129) HDL Cholesterol 55 mg/dL (40-60) Cholesterol/HDL Ratio 3.4 Assessment and Plan Assessmemt and Plan Problems Medical Problems: (1) Elevated troponin Status: Acute (2) Hyponatremia Status: Acute UTI ECVD / Plan Dc to SNU in am? Cont fluids Cont IV antibx PTOT Recheck labs Home meds Problems: Comment Review of Relevant I have reviewed the following items marika (where applicable) has been applied. Labs Laboratory Tests Test 02/08/17 15:51 02/08/17 16:50 02/08/17 21:55 02/09/17 04:25 White Blood Count 5.1 x10^3/uL (4.0-11.0) 4.2 x10^3/uL (4.0-11.0) Red Blood Count 4.11 x10^6/uL (4.30-5.70) 3.70 x10^6/uL (4.30-5.70) Hemoglobin 13.2 g/dL (13.0-17.5) 12.0 g/dL (13.0-17.5) Hematocrit 39.4 % (39.0-53.0) 35.1 % (39.0-53.0) Mean Corpuscular Volume 96 fL (79-100) 95 fL (79-100) Mean Corpuscular Hemoglobin 32 pg (25-35) 32 pg (25-35) Mean Corpuscular Hemoglobin Concent 33 g/dL (31-37) 34 g/dL (31-37) Red Cell Distribution Width 13.3 % (11.5-14.5) 13.0 % (11.5-14.5) Platelet Count 203 x10^3/uL (140-400) 170 x10^3/uL (140-400) Neutrophils (%) (Auto) 54 % (31-73) 51 % (31-73) Lymphocytes (%) (Auto) 29 % (24-48) 30 % (24-48) Monocytes (%) (Auto) 12 % (0-9) 14 % (0-9) Eosinophils (%) (Auto) 4 % (0-3) 5 % (0-3) Basophils (%) (Auto) 1 % (0-3) 0 % (0-3) Neutrophils # (Auto) 2.8 x10^3uL (1.8-7.7) 2.1 x10^3uL (1.8-7.7) Lymphocytes # (Auto) 1.5 x10^3/uL (1.0-4.8) 1.3 x10^3/uL (1.0-4.8) Monocytes # (Auto) 0.6 x10^3/uL (0.0-1.1) 0.6 x10^3/uL (0.0-1.1) Eosinophils # (Auto) 0.2 x10^3/uL (0.0-0.7) 0.2 x10^3/uL (0.0-0.7) Basophils # (Auto) 0.0 x10^3/uL (0.0-0.2) 0.0 x10^3/uL (0.0-0.2) Sodium Level 128 mmol/L (136-145) 130 mmol/L (136-145) Potassium Level 3.7 mmol/L (3.5-5.1) 3.9 mmol/L (3.5-5.1) Chloride Level 91 mmol/L (98-107) 95 mmol/L (98-107) Carbon Dioxide Level 28 mmol/L (21-32) 27 mmol/L (21-32) Anion Gap 9 (6-14) 8 (6-14) Blood Urea Nitrogen 21 mg/dL (8-26) 18 mg/dL (8-26) Creatinine 1.6 mg/dL (0.7-1.3) 1.4 mg/dL (0.7-1.3) Estimated GFR (Cockcroft-Gault) 49.8 58.1 BUN/Creatinine Ratio 13 (6-20) Glucose Level 106 mg/dL (70-99) 99 mg/dL (70-99) Calcium Level 9.7 mg/dL (8.5-10.1) 8.6 mg/dL (8.5-10.1) Total Bilirubin 0.7 mg/dL (0.2-1.0) Aspartate Amino Transf (AST/SGOT) 26 U/L (15-37) Alanine Aminotransferase (ALT/SGPT) 13 U/L (16-63) Alkaline Phosphatase 79 U/L (46-116) Troponin I Quantitative 0.089 ng/mL (0.000-0.055) 0.085 ng/mL (0.000-0.055) 0.085 ng/mL (0.000-0.055) Total Protein 6.6 g/dL (6.4-8.2) Albumin 3.3 g/dL (3.4-5.0) Albumin/Globulin Ratio 1.0 (1.0-1.7) Lipase 122 U/L (73-393) Urine Collection Type U cath Urine Color Yellow Urine Clarity Clear Urine pH 5.5 Urine Specific Mccune 1.015 Urine Protein 30 mg/dL (NEG-TRACE) Urine Glucose (UA) Negative mg/dL (NEG) Urine Ketones (Stick) Negative mg/dL (NEG) Urine Blood Small (NEG) Urine Nitrite Negative (NEG) Urine Bilirubin Negative (NEG) Urine Urobilinogen Dipstick 0.2 mg/dL (0.2 mg/dL) Urine Leukocyte Esterase Trace (NEG) Urine RBC 3-5 /HPF (0-2) Urine WBC Occ /HPF (0-4) Urine Squamous Epithelial Cells Occ /LPF Urine Amorphous Sediment Present /HPF Urine Bacteria 0 /HPF (0-FEW) Magnesium Level 1.8 mg/dL (1.8-2.4) Thyroid Stimulating Hormone (TSH) 1.684 uIU/mL (0.358-3.74) Test 02/10/17 03:20 Hemoglobin 11.3 g/dL (13.0-17.5) Reticulocyte Count (auto) 1.8 % (0.5-2.5) Sodium Level 132 mmol/L (136-145) Potassium Level 4.0 mmol/L (3.5-5.1) Chloride Level 99 mmol/L (98-107) Carbon Dioxide Level 29 mmol/L (21-32) Anion Gap 4 (6-14) Blood Urea Nitrogen 15 mg/dL (8-26) Creatinine 1.4 mg/dL (0.7-1.3) Estimated GFR (Cockcroft-Gault) 58.1 Glucose Level 94 mg/dL (70-99) Calcium Level 7.9 mg/dL (8.5-10.1) Phosphorus Level 2.8 mg/dL (2.6-4.7) Magnesium Level 1.6 mg/dL (1.8-2.4) Iron Level 74 ug/dL (65-175) Total Iron Binding Capacity 216 ug/dL (250-450) Iron Saturation 34 % (15-34) Ferritin 289 ng/mL (26-388) Albumin 2.5 g/dL (3.4-5.0) Triglycerides Level 59 mg/dL (0-150) Cholesterol Level 186 mg/dL (0-200) LDL Cholesterol, Calculated 119 mg/dL (0-100) VLDL Cholesterol, Calculated 12 mg/dL (0-40) Non-HDL Cholesterol Calculated 131 mg/dL (0-129) HDL Cholesterol 55 mg/dL (40-60) Cholesterol/HDL Ratio 3.4 Laboratory Tests Test 02/10/17 03:20 Hemoglobin 11.3 g/dL (13.0-17.5) Reticulocyte Count (auto) 1.8 % (0.5-2.5) Sodium Level 132 mmol/L (136-145) Potassium Level 4.0 mmol/L (3.5-5.1) Chloride Level 99 mmol/L (98-107) Carbon Dioxide Level 29 mmol/L (21-32) Anion Gap 4 (6-14) Blood Urea Nitrogen 15 mg/dL (8-26) Creatinine 1.4 mg/dL (0.7-1.3) Estimated GFR (Cockcroft-Gault) 58.1 Glucose Level 94 mg/dL (70-99) Calcium Level 7.9 mg/dL (8.5-10.1) Phosphorus Level 2.8 mg/dL (2.6-4.7) Magnesium Level 1.6 mg/dL (1.8-2.4) Iron Level 74 ug/dL (65-175) Total Iron Binding Capacity 216 ug/dL (250-450) Iron Saturation 34 % (15-34) Ferritin 289 ng/mL (26-388) Albumin 2.5 g/dL (3.4-5.0) Triglycerides Level 59 mg/dL (0-150) Cholesterol Level 186 mg/dL (0-200) LDL Cholesterol, Calculated 119 mg/dL (0-100) VLDL Cholesterol, Calculated 12 mg/dL (0-40) Non-HDL Cholesterol Calculated 131 mg/dL (0-129) HDL Cholesterol 55 mg/dL (40-60) Cholesterol/HDL Ratio 3.4 Microbiology 02/08/17 Urine Culture - Preliminary, Resulted 02/08/17 Urine Culture Result 1 (PATRICIA) - Preliminary, Resulted Medications Current Medications Fentanyl Citrate (Fentanyl 2ml Vial) 25 mcg PRN Q15MIN PRN IV PAIN GREATER THAN 3/10 Last administered on 02/08/17 16:12; Start 02/08/17 at 15:45; Stop at 15:44; Status DC Ondansetron HCl (Zofran) 4 mg 1X ONCE IV Last administered on 02/08/17 16:10 ; Start 02/08/17 at 15:45; Stop 02/08/17 at 15:46; Status DC Sodium Chloride 1,000 ml @ 100 mls/hr 1X ONCE IV Last administered on 16:09; Start 02/08/17 at 15:45; Stop 02/09/17 at 01:44; Status DC Iohexol (Omnipaque 300 Mg/ml) 60 ml 1X ONCE IV Last administered on 02/08/17 17:02; Start 02/08/17 at 17:00; Stop 02/08/17 at 17:01; Status DC Info (Do NOT chart on this entry -- for MONITORING) 1 each PRN DAILY PRN MC SEE COMMENTS; Start 02/08/17 at 17:00; Stop 02/10/17 at 16:59 Ceftriaxone Sodium 50 ml @ 100 mls/hr 1X ONCE IV Last administered on 18:14; Start 02/08/17 at 17:45; Stop 02/08/17 at 18:14; Status DC Ondansetron HCl (Zofran) 4 mg PRN Q8HRS PRN IV NAUSEA/VOMITING; Start 02/08/17 at 18:15; Stop 02/09/17 at 18:14; Status DC Fentanyl Citrate (Fentanyl 2ml Vial) 25 mcg PRN Q1HR PRN IV PAIN; Start at 18:15; Stop 02/09/17 at 18:14; Status DC Sodium Chloride 1,000 ml @ 100 mls/hr Q10H IV Last administered on 02/09/17 13:13; Start 02/08/17 at 18:01; Stop 02/09/17 at 18:00; Status DC Acetaminophen (Tylenol) 650 mg PRN Q4HRS PRN PO FEVER; Start 02/08/17 at 18:15 ; Stop 02/09/17 at 18:14; Status DC Insulin Aspart (NovoLOG) 0-5 UNITS TIDWMEALS SQ ; Start 02/09/17 at 08:00; Stop 02/09/17 at 08:45; Status DC Dextrose (Dextrose 50%-Water Syringe) 12.5 gm PRN Q15MIN PRN IV SEE COMMENTS; Start 02/08/17 at 18:15; Stop 02/09/17 at 08:45; Status DC Ceftriaxone Sodium 1 gm/ Sodium Chloride 50 ml @ 100 mls/hr Q24H IV Last administered on 02/09/17 17:38; Start 02/09/17 at 19:00 Amlodipine Besylate (Norvasc) 5 mg 1X ONCE PO Last administered on 02/09/17 04:13; Start 02/09/17 at 04:30; Stop 02/09/17 at 04:31; Status DC Amlodipine Besylate (Norvasc) 5 mg DAILY PO ; Start 02/10/17 at 09:00; Stop at 09:00; Status DC Amlodipine Besylate (Norvasc) 10 mg DAILY PO ; Start 02/10/17 at 09:00; Status Cancel Clonidine HCl (Catapres) 0.2 mg PRN Q4HRS PRN PO HYPERTENSION, SEE COMMENTS Last administered on 02/10/17 09:05; Start 02/09/17 at 08:45 Polyethylene Glycol (miraLAX PACKET) 17 gm DAILY PO Last administered on 09:03; Start 02/09/17 at 11:00 Pantoprazole Sodium (Protonix) 40 mg DAILYAC PO Last administered on 02/10/17 09:03; Start 02/09/17 at 11:00 Hydralazine HCl (Apresoline) 10 mg PRN Q4HRS PRN IVP ELEVATED BP, SEE COMMENTS ; Start 02/09/17 at 12:00 Magnesium Sulfate/ Dextrose 50 ml @ 25 mls/hr PRN DAILY PRN IV for Mag < 1.7 on am labs Last administered on 02/10/17 09:03; Start 02/09/17 at 12:00 Amlodipine Besylate (Norvasc) 5 mg DAILY PO ; Start 02/10/17 at 09:00 Citalopram Hydrobromide (CeleXA) 20 mg DAILY PO Last administered on 02/10/17 09:04; Start 02/09/17 at 14:00 Timolol Maleate (Timoptic 0.5% Ophth) 1 drop BID OU ; Start 02/09/17 at 21:00 Albuterol Sulfate (Ventolin Neb Soln) 2.5 mg PRN Q4HRS PRN NEB CONGESTION; Start 02/09/17 at 13:45 Latanoprost (Xalatan) 1 drop QHS OU Last administered on 02/09/17 20:51; Start 02/09/17 at 21:00 Gabapentin (Neurontin) 300 mg TID PO Last administered on 02/10/17 09:04; Start 02/09/17 at 14:00 Hydrochlorothiazide (Hydrodiuril) 25 mg DAILY PO ; Start 02/10/17 at 09:00 Oxybutynin Chloride (Ditropan) 5 mg [id number] PO Last administered on 02/10/17 13 :32; Start 02/09/17 at 14:00 Aspirin (Ecotrin) 81 mg DAILYWBKFT PO Last administered on 02/10/17 09:04; Start 02/09/17 at 16:00 Acetaminophen (Tylenol) 650 mg PRN Q6HRS PRN PO MILD PAIN; Start 02/10/17 at 02 :15 Lactulose 20 gm 1X ONCE PO Last administered on 02/10/17 13:32; Start at 12:30; Stop 02/10/17 at 12:31; Status DC Active Scripts Active Norvasc (Amlodipine Besylate) 5 Mg Tablet 5 Mg PO DAILY Reported Ventolin Hfa Inhaler (Albuterol Sulfate) 18 Gm Hfa.aer.ad 2 Puff INH Q4HRS PRN Hydrochlorothiazide Tablet (Hydrochlorothiazide) 12.5 Mg Tablet 2 Tab PO DAILY Gabapentin 300 Mg Capsule 300 Mg PO TID Timolol Maleate 10 Ml Drops 1 Drop EACHEYE BID Lumigan (Bimatoprost) 2.5 Ml Drops 1 Drop EACHEYE QHS Citalopram Hbr (Citalopram Hydrobromide) 20 Mg Tablet 20 Mg PO DAILY Vesicare (Solifenacin Succinate) 10 Mg Tablet 10 Mg PO DAILY Vitals/I & O Vital Sign - Last 24 Hours 02/09/17 02/09/17 02/09/17 02/09/17 15:00 19:38 20:00 23:08 Temp 97.5 98.2 98.3 97.5 98.2 98.3 Pulse 66 57 53 Resp 20 18 18 B/P (MAP) 144/85 (104) 149/89 (109) 156/96 (116) Pulse Ox 95 96 95 O2 Delivery Room Air Room Air Room Air Room Air 02/10/17 02/10/17 02/10/17 02/10/17 03:31 07:05 08:00 09:05 Temp 98.4 97.8 98.4 97.8 Pulse 68 53 53 Resp 18 18 B/P (MAP) 154/98 (116) 181/100 (127) 181/100 Pulse Ox 98 99 O2 Delivery Room Air Room Air Room Air 02/10/17 10:40 Temp 98.1 98.1 Pulse 59 Resp 18 B/P (MAP) 148/71 (96) Pulse Ox 96 O2 Delivery Room Air Intake and Output 02/09/17 02/09/17 02/10/17 15:00 23:00 07:00 Intake Total 400 ml 700 ml Output Total 600 ml 950 ml Balance -200 ml -250 ml JOSE ANGEL SAINI III DO Feb 10, 2017 14:22
[2017-02-10 14:45] VITALS: BP 126/69
[2017-02-10 19:44] VITALS: BP 111/65
[2017-02-10] MEDS: LATANOPROST 0.005% OPHTH SOLUTION 2.5ML BOTTLE. OU SCH (20:42)
[2017-02-10] MEDS: TIMOLOL 0.5% OPHTH SOLUTION 5ML BOTTLE. OU SCH (20:42)
[2017-02-10 23:15] VITALS: BP 152/93
[2017-02-11 03:22] VITALS: BP 170/81
[2017-02-11 03:52] LABS: BASO % 0 % (0-3); EOS % 5 % (0-3); HEMATOCRIT 33.3 % (39.0-53.0); HEMOGLOBIN 11.3 g/dL (13.0-17.5); LYMPH # 1.2 x10^3/uL (1.0-4.8); LYMPH % 30 % (24-48); MEAN CORPUSCULAR HEMOGLOBIN 32 pg (25-35); MEAN CORPUSCULAR HGB CONC 34 g/dL (31-37); MEAN CORPUSCULAR VOLUME 95 fL (79-100); MONO % 13 % (0-9); NEUT % 52 % (31-73); PLATELET COUNT 161 x10^3/uL (140-400); RED BLOOD COUNT 3.49 x10^6/uL (4.30-5.70); RED CELL DISTRIBUTION WIDTH 13.1 % (11.5-14.5)
[2017-02-11 04:11] LABS: ALBUMIN 2.6 g/dL (3.4-5.0); CALCIUM 8.2 mg/dL (8.5-10.1); CREATININE 1.3 mg/dL (0.7-1.3); GFR 63.3; PHOSPHORUS 2.3 mg/dL (2.6-4.7); POTASSIUM 4.3 mmol/L (3.5-5.1)
[2017-02-11 05:23] VITALS: BP 156/80
[2017-02-11 07:15] VITALS: BP 193/110
[2017-02-11] MEDS: PANTOPRAZOLE 40 MG TABLET.DR. PO SCH (07:23)
--- NOTE | 2017-02-11 08:14 | RAD ---
Deep Doppler renal ultrasound, 02/11/2017: History: Hypertension Duplex evaluation of the main renal arteries was performed including grayscale, color-flow and spectral Doppler analysis. No high velocities are seen either main renal artery to suggest significant stenosis. No parvus/tardus phenomena is evident. The renal artery to aortic velocity ratios are normal. There is moderate aortic atherosclerosis. The right kidney measures 9.7 cm in length while the left kidney measures 9.1 cm. IMPRESSION: No duplex evidence of significant renal artery stenosis.
[2017-02-11] MEDS: GABAPENTIN 300 MG CAPSULE. PO SCH ×2 (08:46→14:02)
[2017-02-11] MEDS: OXYBUTYNIN CHLORIDE 5 MG TABLET PO SCH ×2 (08:46→14:02)
[2017-02-11] MEDS: hydroCHLOROthiazide 25 MG TABLET PO SCH (08:46)
[2017-02-11] MEDS: ASPIRIN ENTERIC COATED 81 MG TABLET.DR. PO SCH (08:47)
[2017-02-11] MEDS: amLODIPine BESYLATE 5 MG TABLET PO SCH (08:47)
[2017-02-11] MEDS: CITALOPRAM 20 MG TABLET. PO SCH (08:47)
[2017-02-11] MEDS: POLYETHYLENE GLYCOL 3350 17 GM PACKET. PO SCH (08:48)
[2017-02-11] MEDS: TIMOLOL 0.5% OPHTH SOLUTION 5ML BOTTLE. OU SCH (08:48)
--- NOTE | 2017-02-11 10:10 | PDOC ---
Subjective: Subjective: Wants to know why still has flank pain. Objective: Objective: Per RN - doing well, likely DC today. Vital Signs: Vital Signs Date Time Temp Pulse Resp B/P (MAP) Pulse Ox O2 Delivery O2 Flow Rate FiO2 02/11/17 08:47 58 193/110 02/11/17 07:15 98.2 20 96 Room Air 98.2 Labs: Laboratory Tests Test 02/11/17 03:05 White Blood Count 4.0 x10^3/uL Red Blood Count 3.49 x10^6/uL Hemoglobin 11.3 g/dL Hematocrit 33.3 % Mean Corpuscular Volume 95 fL Mean Corpuscular Hemoglobin 32 pg Mean Corpuscular Hemoglobin Concent 34 g/dL Red Cell Distribution Width 13.1 % Platelet Count 161 x10^3/uL Neutrophils (%) (Auto) 52 % Lymphocytes (%) (Auto) 30 % Monocytes (%) (Auto) 13 % Eosinophils (%) (Auto) 5 % Basophils (%) (Auto) 0 % Neutrophils # (Auto) 2.1 x10^3uL Lymphocytes # (Auto) 1.2 x10^3/uL Monocytes # (Auto) 0.5 x10^3/uL Eosinophils # (Auto) 0.2 x10^3/uL Basophils # (Auto) 0.0 x10^3/uL Sodium Level 133 mmol/L Potassium Level 4.3 mmol/L Chloride Level 100 mmol/L Carbon Dioxide Level 28 mmol/L Anion Gap 5 Blood Urea Nitrogen 18 mg/dL Creatinine 1.3 mg/dL Estimated GFR (Cockcroft-Gault) 63.3 Glucose Level 103 mg/dL Calcium Level 8.2 mg/dL Phosphorus Level 2.3 mg/dL Magnesium Level 2.3 mg/dL Albumin 2.6 g/dL PE: GEN: NAD LUNGS: clear HEART: S1S2 ABD: non-tender NEURO/PSYCH: A & O 3 A/P: Left flank pain -- Not likely GI-related, DC per primary. D/w Dr. Marquez, pt's . NAY RODRIGUEZ OMID Feb 11, 2017 10:10
[2017-02-11 10:51] VITALS: BP 171/87
--- NOTE | 2017-02-11 20:11 | DS ---
DATE OF DISCHARGE: 02/11/2017 ADMISSION DIAGNOSIS: Urinary tract infection and dehydration. DISCHARGE DIAGNOSES: Resolving urinary tract infection, resolving dehydration, and resolving acute renal failure. HOSPITAL COURSE: The patient is a pleasant 86-year-old male who presented with a bump in his creatinine and UTI and was dehydrated. He was admitted. We gave him IV antibiotics and fluids. We consulted Gastroenterology and Nephrology. His symptoms have resolved. We plan to discharge him with close outpatient followup. The patient was seen and examined this morning. Heart sounds were normal. His lungs were clear. His abdomen was soft. Extremities have no edema. Skin has no rashes. We plan to discharge. DISPOSITION: Home. ACTIVITY: As tolerated. DIET: Low sodium. MEDICATIONS: Please see the MRAD. TOTAL TIME ON DISCHARGE: 35 minutes. JOSE ANGEL SAINI DO DR: BRIGID/chung JOB#: [id number] / [id number]
== END 2017-02-11 14:10 | DRG 683 ==
LOC: ER 15:15 → 6 SOUTH 16:44
PROVIDERS: ADMIT Internal Medicine; ATTEND Internal Medicine
DX: N17.9 Acute kidney failure, unspecified (principal); N39.0 Urinary tract infection, site not specified; E87.1 Hypo-osmolality and hyponatremia; I47.2 Ventricular tachycardia; K29.70 Gastritis, unspecified, without bleeding; E11.22 Type 2 diabetes mellitus with diabetic chronic kidney disease; N18.3 Chronic kidney disease, stage 3 (moderate); E11.40 Type 2 diabetes mellitus with diabetic neuropathy, unspecified; E11.51 Type 2 diabetes mellitus with diabetic peripheral angiopathy without gangrene; E78.5 Hyperlipidemia, unspecified; E86.0 Dehydration; F17.210 Nicotine dependence, cigarettes, uncomplicated; H40.9 Unspecified glaucoma; H54.0 Blindness, both eyes; F32.9 Major depressive disorder, single episode, unspecified; K57.90 Diverticulosis of intestine, part unspecified, without perforation or abscess without bleeding; K44.9 Diaphragmatic hernia without obstruction or gangrene; I12.9 Hypertensive chronic kidney disease with stage 1 through stage 4 chronic kidney disease, or unspecified chronic kidney disease; J44.9 Chronic obstructive pulmonary disease, unspecified; K59.00 Constipation, unspecified; K80.20 Calculus of gallbladder without cholecystitis without obstruction; M19.90 Unspecified osteoarthritis, unspecified site; N40.0 Benign prostatic hyperplasia without lower urinary tract symptoms; Z86.010 Personal history of colon polyps; Z82.49 Family history of ischemic heart disease and other diseases of the circulatory system; Z83.3 Family history of diabetes mellitus; Z84.1 Family history of disorders of kidney and ureter; Z87.440 Personal history of urinary (tract) infections; Z88.8 Allergy status to other drugs, medicaments and biological substances
CPT/HCPCS: 36415; 71020; 74177; 80048; 80053; 80061; 80069; 81001; 82728; 83540; 83550; 83690; 83735; 84443; 84484; 85018; 85027; 85045; 87086; 93005; 93306; 93975; 96365; 96375; J0690; J0696; J1815; J2405; J3010; J7030; J7060; Q9967; 99285-25

== ENCOUNTER 2017-07-24 13:28 | Emergency (ER) | payer MEDICARE, BC ==
[~2017-07-24 13:28] MED LIST changes: +HYDR12.58 PO; +VENTOLIN HFA18 GM INH
[2017-07-24 13:40] VITALS: BP 143/86
--- NOTE | 2017-07-24 15:26 | RAD ---
HAND RIGHT 3V Clinical Indication: fall Comparison: None. Technique: Frontal, oblique and lateral views of the right hand are obtained. Findings: Significant degenerative changes are seen involving the radiocarpal joint, carpal bones, carpometacarpal, and metacarpophalangeal joints. There is subluxation involving the fifth carpometacarpal joint. There is suggestion of subluxation also involving the fourth proximal interphalangeal joint, although correlate for specific site of injury as traumatic subluxation is not excluded. There is some overlap of the distal aspect of the proximal fourth phalanx and the proximal aspect of the middle phalanx, limiting visualization for fracture at this level. There is irregularity of the medial cortex of the distal proximal phalanx, with fracture at this level not excluded. Recommend clinical correlation for site of point tenderness. Otherwise, no displaced fractures seen. Diffuse demineralization is present. 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 See discussion above regarding fourth digit.
[2017-07-24] MEDS ORDERED: LIDOCAINE 2% 20 ML VIAL. IJ ONE (15:30)
[2017-07-24] MEDS ORDERED: ALPRAZolam 0.5 MG TABLET PO ONE (15:45)
--- NOTE | 2017-07-24 16:56 | PHYS DOC ---
Past Medical History Past Medical History: Arthritis, Diabetes-Type II, Glaucoma, Hypertension Additional Past Medical Histor: neuropathy, blind, Rt shoulder ligament torn, PAD Past Surgical History: Other Additional Past Surgical Histo: right ext iliac stent Alcohol Use: None Drug Use: None Adult General Chief Complaint Chief Complaint: HAND PROBLEM HPI HPI Patient is a 87 year old male who presents with finger pain to the right fourth finger following a fall 2 days ago. They taped the finger but it has continued to be very painful for the patient. He states he's been taking his normal medications at home for the pain. Review of Systems Review of Systems Constitutional: Denies fever or chills [] Respiratory: Denies cough or shortness of breath [] Cardiovascular: No additional information not addressed in HPI [] Musculoskeletal: See history of present illness Integument: Denies rash or skin lesions [] Neurologic: Denies headache, focal weakness or sensory changes [] Endocrine: Denies polyuria or polydipsia [] All other systems were reviewed and found to be within normal limits, except as documented in this note. Current Medications Current Medications Current Medications Medications (Trade) Dose Ordered Sig/Alysia Start Time Stop Time Status Last Admin Dose Admin Alprazolam (Xanax) 0.5 mg 1X ONCE 07/24/17 15:45 07/24/17 15:46 DC 07/24/17 15:37 0.5 MG Lidocaine HCl 20 ml 1X ONCE 07/24/17 15:30 07/24/17 15:31 DC 07/24/17 15:37 20 ML Allergies Allergies Allergies Coded Allergies Type Severity Reaction Last Updated Verified lisinopril Adverse Reaction Intermediate COUGH 02/11/17 Yes Physical Exam Physical Exam Constitutional: Well developed, well nourished, no acute distress, non-toxic appearance. [] Cardiovascular:Heart rate regular rhythm, no murmur [] Lungs & Thorax: Bilateral breath sounds clear to auscultation [] Abdomen: Bowel sounds normal, soft, no tenderness, no masses, no pulsatile masses. [] Skin: Warm, dry, no erythema, no rash. [] Extremities: tenderness to the right fourth digit, pulses and sensation are intact, there is obvious deformity, although patient has multiple deformities to bilateral hands and wrists due to arthritis Neurologic: Alert and oriented X 3, normal motor function, normal sensory function, no focal deficits noted. [] Psychologic: Affect normal, judgement normal, mood normal. [] Current Patient Data Vital Signs Vital Signs Date Time Temp Pulse Resp B/P (MAP) Pulse Ox O2 Delivery O2 Flow Rate FiO2 07/24/17 13:40 97.6 62 16 95 Room Air 97.6 EKG EKG [] Radiology/Procedures Radiology/Procedures [] PATIENT: KRISTIN PAINTER ACCOUNT: [id number] : 1930 LOCATION: ER AGE: 87 SEX: M EXAM STATUS: REG ER ORD. PHYSICIAN: BRAD HOGAN APRN REASON: fall PROCEDURE: HAND RIGHT 3V HAND RIGHT 3V Clinical Indication: fall Comparison: None. Technique: Frontal, oblique and lateral views of the right hand are obtained. Findings: Significant degenerative changes are seen involving the radiocarpal joint, carpal bones, carpometacarpal, and metacarpophalangeal joints. There is subluxation involving the fifth carpometacarpal joint. There is suggestion of subluxation also involving the fourth proximal interphalangeal joint, although correlate for specific site of injury as traumatic subluxation is not excluded. There is some overlap of the distal aspect of the proximal fourth phalanx and the proximal aspect of the middle phalanx, limiting visualization for fracture at this level. There is irregularity of the medial cortex of the distal proximal phalanx, with fracture at this level not excluded. Recommend clinical correlation for site of point tenderness. Otherwise, no displaced fractures seen. Diffuse demineralization is present. 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 See discussion above regarding fourth digit. DICTATED and SIGNED BY: CORINA DU MD DATE: 07/24/17 1515 CC: BRAD HOGAN APRN; NON,STAFF; SHRUTHI MCDANIEL Jr, MD ~ Impressions: Postreduction film shows good approximation of the phalange back in the proper alignment. Course & Med Decision Making Course & Med Decision Making Pertinent Labs and Imaging studies reviewed. (See chart for details) []1. Dislocated finger Ingrid Blue assisted in the care of this patient. Following a digital block the finger was reduced and postreduction films were obtained. A near perfect reduction was obtained to that digit. The patient was then splinted and will follow up with orthopedics. Dragon Disclaimer Dragon Disclaimer This electronic medical record was generated, in whole or in part, using a voice recognition dictation system. Departure Departure Impression: Primary Impression: Dislocated finger Disposition: HOME, SELF-CARE Condition: IMPROVED Referrals: SALOMÓN HERNANDEZ MD Patient Instructions: Dislocation, General Additional Instructions: Please follow-up with Dr. Hernandez on Wednesday for a recheck of this joint. BRAD HOGAN APRN Jul 24, 2017 16:56
--- NOTE | 2017-07-25 08:53 | RAD ---
HAND RIGHT 3V Clinical Indication: post reduction films Comparison: Earlier on the same day. Technique: Frontal, oblique and lateral views of the right hand are obtained. Findings: There has been interval reduction of the previously demonstrated dislocation involving the proximal interphalangeal joint of the fourth digit. No displaced fracture is seen. Overlying splint in place. Remainder of the osseous structures are unchanged. IMPRESSION: Interval reduction of the previous dislocation of the proximal IP joint of the fourth digit.
--- NOTE | 2017-07-25 08:55 | RAD ---
FINGER(S) RIGHT Clinical Indication: Injury to fourth digit, pain. Comparison: None. Technique: Oblique and lateral views of the right fourth digit are obtained. Findings: There is an acute, traumatic dislocation involving the proximal interphalangeal joint of the fourth digit, with posterior dislocation of the mid and distal phalanges in relation to the proximal phalanx. No displaced fracture is seen. Surrounding soft tissue swelling is present. IMPRESSION: Acute dislocation of the proximal IP joint of the fourth digit.
== END 2017-07-24 16:21 | disposition home or self-care (01) ==
LOC: ER 13:28
DX: S63.284A Dislocation of proximal interphalangeal joint of right ring finger, initial encounter (principal); M19.90 Unspecified osteoarthritis, unspecified site; E11.40 Type 2 diabetes mellitus with diabetic neuropathy, unspecified; E11.39 Type 2 diabetes mellitus with other diabetic ophthalmic complication; H40.9 Unspecified glaucoma; I10 Essential (primary) hypertension; H54.40 Blindness, one eye, unspecified eye; Z88.8 Allergy status to other drugs, medicaments and biological substances; W18.39XA Other fall on same level, initial encounter; Y93.89 Activity, other specified; Y92.89 Other specified places as the place of occurrence of the external cause; Y99.8 Other external cause status
CPT/HCPCS: 26770; 73130; 73140; 99284-25; J2001